=== PATIENT | female | born 1945 | race Caucasian/White ===

== ENCOUNTER → 2017-10-12 | Outpatient (REF) ==
[2017-10-12 10:29] LABS: MEAN CORPUSCULAR HEMOGLOBIN 28.3 pg (27.0-33.0); MEAN CORPUSCULAR HGB CONC 32.2 g/dl (32.0-36.5); MEAN CORPUSCULAR VOLUME 87.9 fl (80.0-96.0); PLATELET COUNT, AUTOMATED 285 10^3/uL (150-450); RED CELL DISTRIBUTION WIDTH 14.7 % (11.5-14.5)
[2017-10-12 10:43] LABS: CALCIUM LEVEL 8.7 MG/DL (8.8-10.2); CREATININE FOR GFR 1.02 MG/DL (0.55-1.02); GLOMERULAR FILTRATION RATE 56.4 (>39); POTASSIUM SERUM 4.8 MEQ/L (3.5-5.1)
== END ==
PROVIDERS: ATTEND Internal Medicine
DX: E11.9 Type 2 diabetes mellitus without complications (principal)

== ENCOUNTER → 2017-11-02 | Outpatient (REF) ==
[2017-11-02 11:11] LABS: HEMATOCRIT 39.4 % (36.0-47.0); HEMOGLOBIN 12.4 g/dl (12.0-16.0); MEAN CORPUSCULAR HEMOGLOBIN 27.7 pg (27.0-33.0); MEAN CORPUSCULAR HGB CONC 31.5 g/dl (32.0-36.5); MEAN CORPUSCULAR VOLUME 87.9 fl (80.0-96.0); PLATELET COUNT, AUTOMATED 230 10^3/uL (150-450); RED BLOOD COUNT 4.48 10^6/uL (4.00-5.40); RED CELL DISTRIBUTION WIDTH 14.5 % (11.5-14.5); WHITE BLOOD COUNT 6.3 10^3/uL (4.0-10.0)
[2017-11-02 11:45] LABS: ALBUMIN 3.2 GM/DL (3.2-5.2); ALKALINE PHOSPHATASE 62 U/L (45-117); ALT/SGPT 30 U/L (12-78); ANION GAP 9 MEQ/L (8-16); AST/SGOT 22 U/L (7-37); BILIRUBIN,DIRECT 0.1 MG/DL (0.0-0.2); BILIRUBIN,TOTAL 0.3 MG/DL (0.2-1.0); BLOOD UREA NITROGEN 32 MG/DL (7-18); CALCIUM LEVEL 8.8 MG/DL (8.8-10.2); CARBON DIOXIDE LEVEL 27 MEQ/L (21-32); CHLORIDE LEVEL 102 MEQ/L (98-107); CREATININE FOR GFR 0.87 MG/DL (0.55-1.02); GLOMERULAR FILTRATION RATE > 60.0 (>39); GLUCOSE, FASTING 187 MG/DL (83-110); POTASSIUM SERUM 4.4 MEQ/L (3.5-5.1); SODIUM LEVEL 138 MEQ/L (136-145); TOTAL PROTEIN 6.1 GM/DL (6.4-8.2)
[2017-11-02 13:37] LABS: ESTIMATED AVERAGE GLUCOSE 192 MG/DL (60-110); HEMOGLOBIN A1c 8.3 %
== END ==
DX: E11.9 Type 2 diabetes mellitus without complications (principal); E03.9 Hypothyroidism, unspecified

== ENCOUNTER 2017-11-15 09:43 | Outpatient (REF) ==
[2017-11-16 10:03] LABS: APPEARANCE, URINE CLOUDY (CLEAR); BACTERIA, URINE AUTO 1+ (NEGATIVE); BILIRUBIN, URINE AUTO NEGATIVE (NEGATIVE); BLOOD, URINE BLOOD NEGATIVE (NEGATIVE); COLOR, URINE YELLOW (YELLOW); GLUCOSE, URINE (UA) AUTO 1+ mg/dL (NEGATIVE); KETONE, URINE AUTO NEGATIVE (NEGATIVE); LEUKOCYTE ESTERASE, URINE AUTO 3+ (NEGATIVE); NITRITE, URINE AUTO POSITIVE (NEGATIVE); PROTEIN, URINE AUTO NEGATIVE (NEGATIVE); RBC, URINE AUTO 7 /HPF (0-3); SPECIFIC GRAVITY URINE AUTO 1.013 (1.002-1.035); SQUAMOUS EPITHELIAL CELL UR AU 2 /HPF (0-6); UROBILINOGEN, URINE AUTO 0.2 mg/dL (0.0-2.0); WBC, URINE AUTO TNTC /HPF (0-3)
== END 2017-11-16 ==
DX: R30.0 Dysuria (principal)

== ENCOUNTER → 2018-02-21 | Outpatient (REF) | DX: J84.9 Interstitial pulmonary disease, unspecified (principal); R05 Cough ==

== ENCOUNTER → 2018-02-24 | Outpatient (REF) ==
[2018-02-24 12:51] LABS: HEMATOCRIT 36.7 % (36.0-47.0); HEMOGLOBIN 11.9 g/dl (12.0-15.5); MEAN CORPUSCULAR HGB CONC 32.4 g/dl (32.0-36.5); MEAN CORPUSCULAR VOLUME 86.4 fl (80.0-96.0); PLATELET COUNT, AUTOMATED 227 10^3/uL (150-450); RED BLOOD COUNT 4.25 10^6/uL (4.00-5.40); RED CELL DISTRIBUTION WIDTH 14.6 % (11.5-14.5); WHITE BLOOD COUNT 7.8 10^3/uL (4.0-10.0)
[2018-02-24 14:15] LABS: ALBUMIN 3.1 GM/DL (3.2-5.2); ALBUMIN/GLOBULIN RATIO 0.94 (1.00-1.93); ALKALINE PHOSPHATASE 104 U/L (45-117); ALT/SGPT 46 U/L (12-78); ANION GAP 11 MEQ/L (8-16); AST/SGOT 28 U/L (7-37); BILIRUBIN,TOTAL 0.2 MG/DL (0.2-1.0); BLOOD UREA NITROGEN 30 MG/DL (7-18); CALCIUM LEVEL 8.8 MG/DL (8.8-10.2); CARBON DIOXIDE LEVEL 23 MEQ/L (21-32); CHLORIDE LEVEL 108 MEQ/L (98-107); CREATININE FOR GFR 0.89 MG/DL (0.55-1.30); GLOMERULAR FILTRATION RATE > 60.0 (>39); GLUCOSE, FASTING 183 MG/DL (70-100); POTASSIUM SERUM 4.4 MEQ/L (3.5-5.1); SODIUM LEVEL 142 MEQ/L (136-145); TOTAL PROTEIN 6.4 GM/DL (6.4-8.2)
== END ==
DX: R50.9 Fever, unspecified (principal); R11.0 Nausea

== ENCOUNTER → 2018-05-03 | Outpatient (REF) ==
[2018-05-03 10:11] LABS: HEMATOCRIT 39.3 % (36.0-47.0); HEMOGLOBIN 12.5 g/dl (12.0-15.5); MEAN CORPUSCULAR HEMOGLOBIN 27.4 pg (27.0-33.0); MEAN CORPUSCULAR HGB CONC 31.8 g/dl (32.0-36.5); MEAN CORPUSCULAR VOLUME 86.2 fl (80.0-96.0); PLATELET COUNT, AUTOMATED 225 10^3/uL (150-450); RED BLOOD COUNT 4.56 10^6/uL (4.00-5.40); RED CELL DISTRIBUTION WIDTH 14.7 % (11.5-14.5); WHITE BLOOD COUNT 6.8 10^3/uL (4.0-10.0)
[2018-05-03 10:42] LABS: ESTIMATED AVERAGE GLUCOSE 180 MG/DL (60-110); HEMOGLOBIN A1c 7.9 %
[2018-05-03 11:13] LABS: ALBUMIN 2.8 GM/DL (3.2-5.2); ALBUMIN/GLOBULIN RATIO 1.04 (1.00-1.93); ALKALINE PHOSPHATASE 100 U/L (45-117); ALT/SGPT 25 U/L (12-78); ANION GAP 7 MEQ/L (8-16); AST/SGOT 16 U/L (7-37); BILIRUBIN,DIRECT < 0.1 MG/DL (0.0-0.2); BILIRUBIN,TOTAL 0.2 MG/DL (0.2-1.0); BLOOD UREA NITROGEN 41 MG/DL (7-18); CALCIUM LEVEL 8.6 MG/DL (8.8-10.2); CARBON DIOXIDE LEVEL 30 MEQ/L (21-32); CHLORIDE LEVEL 104 MEQ/L (98-107); CREATININE FOR GFR 0.77 MG/DL (0.55-1.30); GLOMERULAR FILTRATION RATE > 60.0 (>39); GLUCOSE, FASTING 232 MG/DL (70-100); POTASSIUM SERUM 4.4 MEQ/L (3.5-5.1); SODIUM LEVEL 141 MEQ/L (136-145); TOTAL PROTEIN 5.5 GM/DL (6.4-8.2)
== END ==
DX: E78.5 Hyperlipidemia, unspecified (principal); E11.9 Type 2 diabetes mellitus without complications

== ENCOUNTER 2018-06-09 22:58 | Inpatient (IN) | payer MEDICARE, MEDICAID ==
[2018-06-09] MEDS: NS 1,000 ML IV (23:53)
[2018-06-09] MEDS: MORPHINE 4 MG/ML 1ML VIAL/SYRINGE (J2270) IV (23:54)
[2018-06-09 23:56] LABS: BASO # 0.1 10^3/uL (0.0-0.2); BASO % 0.5 % (0.0-1.0); EOS # 0.1 10^3/uL (0.0-0.50); EOS % 0.5 % (0.0-3.0); HEMATOCRIT 43.9 % (36.0-47.0); LYMPH % 5.8 % (24.0-44.0); MEAN CORPUSCULAR HEMOGLOBIN 27.7 pg (27.0-33.0); MEAN CORPUSCULAR HGB CONC 31.9 g/dl (32.0-36.5); MEAN CORPUSCULAR VOLUME 86.9 fl (80.0-96.0); MONO # 0.1 10^3/uL (0.0-0.8); MONO % 0.5 % (0.0-5.0); NEUTROPHILS # 15.1 10^3/uL (1.8-7.7); NEUTROPHILS % 91.7 % (36.0-66.0); PLATELET COUNT, AUTOMATED 281 10^3/uL (150-450); RED BLOOD COUNT 5.05 10^6/uL (4.00-5.40); RED CELL DISTRIBUTION WIDTH 14.9 % (11.5-14.5); WHITE BLOOD COUNT 16.4 10^3/uL (4.0-10.0)
[2018-06-10] MEDS: ONDANSETRON 4MG/2ML VIAL (J2405) IV
[2018-06-10 00:08] LABS: ALBUMIN/GLOBULIN RATIO 0.75 (1.00-1.93); ALKALINE PHOSPHATASE 118 U/L (45-117); ALT/SGPT 32 U/L (12-78); ANION GAP 8 MEQ/L (8-16); AST/SGOT 20 U/L (7-37); BILIRUBIN,DIRECT < 0.1 MG/DL (0.0-0.2); BILIRUBIN,TOTAL 0.3 MG/DL (0.2-1.0); BLOOD UREA NITROGEN 41 MG/DL (7-18); CALCIUM LEVEL 9.1 MG/DL (8.8-10.2); CARBON DIOXIDE LEVEL 29 MEQ/L (21-32); CHLORIDE LEVEL 103 MEQ/L (98-107); CK-MB VALUE MASS 4.1 NG/ML (<3.6); CPK CREATINE PHOSPHOKINASE 123 U/L (26-192); CREATININE FOR GFR 1.23 MG/DL (0.55-1.30); GLOMERULAR FILTRATION RATE 45.3 (>39); GLUCOSE, FASTING 269 MG/DL (70-100); LIPASE 251 U/L (73-393); MB/CK RELATIVE INDEX 3.33 (< OR =4); POTASSIUM SERUM 4.8 MEQ/L (3.5-5.1); SODIUM LEVEL 140 MEQ/L (136-145); TROPONIN I < 0.02 NG/ML (< 0.10)
[2018-06-10] MEDS: PIPERACILLIN/TAZOBACTAM SOD 3.375 GM in D5W MINI-BAG PLUS 50 ML IV ×4 (01:59→20:47)
[2018-06-10] MEDS: ACETAMINOPHEN TAB 650MG DOSE (2X325MG) PO (02:00)
[2018-06-10 02:10] LABS: KETONE, URINE AUTO RFX NEGATIVE (NEGATIVE); MUCUS, URINE RFX SMALL (NEGATIVE); NITRITE, URINE AUTO RFX NEGATIVE (NEGATIVE); RBC, URINE AUTO RFX 84 /HPF (0-3); SPECIFIC GRAVITY UR AUTO RFX 1.012 (1.002-1.035); SQUAM EPITHELIAL CELL UR AURFX 2 /HPF (0-6)
[2018-06-10 02:22] LABS: LEUKOCYTE ESTERASE UR AUTO RFX 3+ (NEGATIVE); WBC, URINE AUTO RFX TNTC /HPF (0-3)
[2018-06-10 02:26] LABS: LACTIC ACID SEPSIS PROTOCOL 2.3 MMOL/L (0.4-2.0)
[2018-06-10] MEDS ORDERED: DEXTROSE 50% 50 ML SYRINGE IV (03:45)
[2018-06-10] MEDS ORDERED: GLUCAGON FOR INJ 1 MG VIAL (J1610) SC (03:45)
[2018-06-10] MEDS ORDERED: SODIUM CHLORIDE NASAL 0.65% SPRAY BTL (OCEAN) (03:45)
[2018-06-10] MEDS ORDERED: GLUCOSE 4 GM CHEW TABLET PO (03:45)
[2018-06-10] MEDS ORDERED: BISACODYL 10 MG SUPP PR (03:45)
[2018-06-10] MEDS: NS 1,000 ML IV ×2 (04:34→14:35)
[2018-06-10] MEDS: TAMSULOSIN 0.4 MG CAP PO (04:35)
[2018-06-10] MEDS: LEVOTHYROXINE 50MCG TABLET (0.05MG) PO (05:33)
[2018-06-10] MEDS: HEPARIN SOD (PORCINE) 5000 UNITS/ML VIAL SC ×3 (05:33→22:00)
[2018-06-10 06:07] LABS: HEMATOCRIT 37.2 % (36.0-47.0); HEMOGLOBIN 12.1 g/dl (12.0-15.5); MEAN CORPUSCULAR HEMOGLOBIN 27.8 pg (27.0-33.0); MEAN CORPUSCULAR HGB CONC 32.5 g/dl (32.0-36.5); MEAN CORPUSCULAR VOLUME 85.5 fl (80.0-96.0); PLATELET COUNT, AUTOMATED 229 10^3/uL (150-450); RED BLOOD COUNT 4.35 10^6/uL (4.00-5.40); RED CELL DISTRIBUTION WIDTH 15.2 % (11.5-14.5); WHITE BLOOD COUNT 23.5 10^3/uL (4.0-10.0)
[2018-06-10 06:20] LABS: ANION GAP 12 MEQ/L (8-16); BLOOD UREA NITROGEN 48 MG/DL (7-18); CALCIUM LEVEL 7.9 MG/DL (8.8-10.2); CARBON DIOXIDE LEVEL 22 MEQ/L (21-32); CHLORIDE LEVEL 110 MEQ/L (98-107); CREATININE FOR GFR 1.73 MG/DL (0.55-1.30); GLOMERULAR FILTRATION RATE 30.6 (>39); GLUCOSE, FASTING 301 MG/DL (70-100); POTASSIUM SERUM 4.2 MEQ/L (3.5-5.1); SODIUM LEVEL 144 MEQ/L (136-145)
[2018-06-10] MEDS: SODIUM CHLORIDE 0.9% 1000 ML IV (08:15)
[2018-06-10] MEDS: CHLORHEXIDINE ORAL RINSE 0.12%/15ML 120ML BOTTLE SSP ×2 (08:32→20:48)
[2018-06-10] MEDS: DOCUSATE SODIUM 100 MG CAP PO ×2 (08:33→20:37)
[2018-06-10] MEDS: DULoxetine 30 MG CAP (CYMBALTA) PO (08:33)
[2018-06-10] MEDS: LISINOPRIL *2.5 MG* TAB PO (08:33)
[2018-06-10] MEDS: OMEPRAZOLE 20 MG CAP PO (08:33)
[2018-06-10] MEDS: GABAPENTIN 300 MG CAP PO ×2 (08:33→20:38)
[2018-06-10] MEDS: FERROUS SULFATE 325MG TAB PO (08:33)
[2018-06-10] MEDS: MULTIVITAMINS/MINERALS THERAP 1 TAB PO (08:34)
[2018-06-10] MEDS: VITAMIN D 1,000 INTERNATIONAL UNITS TABLET PO (08:34)
[2018-06-10] MEDS: HumaLOG INSULIN (NovoLOG) PER UNIT SC ×4 (08:42→23:49)
[2018-06-10] MEDS ORDERED: KETAMINE HCL 200 MG/20 ML VIAL As Ordered (10:53)
[2018-06-10] MEDS ORDERED: MIDAZOLAM INJ 2 MG/2 ML VIAL (J2250) As Ordered (10:53)
[2018-06-10] MEDS ORDERED: PHENYLephrine HCL 500 MCG/5 ML (100MCG/ML) SYRINGE (J2370) As Ordered (11:01)
[2018-06-10] MEDS ORDERED: ONDANSETRON 4MG/2ML VIAL (J2405) IV (11:30)
[2018-06-10 11:45] LABS: BEDSIDE GLUCOSE 194 MG/DL (83-110)
[2018-06-10] MEDS: GABAPENTIN 100 MG CAP PO (12:44)
[2018-06-10 13:06] LABS: LACTIC ACID SEPSIS PROTOCOL 5.7 MMOL/L (0.4-2.0)
[2018-06-10 14:33] LABS: BEDSIDE GLUCOSE 195 MG/DL (83-110)
[2018-06-10 15:59] LABS: HEMATOCRIT 33.7 % (36.0-47.0); HEMOGLOBIN 10.9 g/dl (12.0-15.5); MEAN CORPUSCULAR HEMOGLOBIN 28.4 pg (27.0-33.0); MEAN CORPUSCULAR HGB CONC 32.3 g/dl (32.0-36.5); MEAN CORPUSCULAR VOLUME 87.8 fl (80.0-96.0); PLATELET COUNT, AUTOMATED 169 10^3/uL (150-450); RED BLOOD COUNT 3.84 10^6/uL (4.00-5.40); RED CELL DISTRIBUTION WIDTH 15.8 % (11.5-14.5)
[2018-06-10 16:07] LABS: ADD MANUAL DIFFER YES; DIFF SLIDE NUMBER 295; POS COUNT POS FLAG; POSITIVE DIFF POS FLAG; POSITIVE MORPH POS FLAG; WHITE BLOOD COUNT 31.2 10^3/uL (4.0-10.0)
[2018-06-10 16:26] LABS: ALBUMIN 1.9 GM/DL (3.2-5.2); ALBUMIN/GLOBULIN RATIO 0.73 (1.00-1.93); ALKALINE PHOSPHATASE 76 U/L (45-117); ALT/SGPT 42 U/L (12-78); ANION GAP 13 MEQ/L (8-16); AST/SGOT 42 U/L (7-37); BILIRUBIN,TOTAL 0.5 MG/DL (0.2-1.0); BLOOD UREA NITROGEN 53 MG/DL (7-18); CALCIUM LEVEL 7.1 MG/DL (8.8-10.2); CARBON DIOXIDE LEVEL 20 MEQ/L (21-32); CHLORIDE LEVEL 112 MEQ/L (98-107); CREATININE FOR GFR 2.19 MG/DL (0.55-1.30); GLOMERULAR FILTRATION RATE 23.3 (>39); GLUCOSE, FASTING 247 MG/DL (70-100); MAGNESIUM LEVEL 1.2 MG/DL (1.8-2.4); POTASSIUM SERUM 4.9 MEQ/L (3.5-5.1); SODIUM LEVEL 145 MEQ/L (136-145); TOTAL PROTEIN 4.5 GM/DL (6.4-8.2)
[2018-06-10 16:29] LABS: LACTIC ACID SEPSIS PROTOCOL 4.3 MMOL/L (0.4-2.0)
[2018-06-10 16:30] LABS: ATYPICAL LYMPH 3 % (0-5); BANDS 11 % (< 11); LYMPHOCYTES 6 % (16-52); METAMYELOCYTES 3 % (0-0); MYELOCYTES 3 % (0-0); NEUTROPHILS 74 % (35-75)
[2018-06-10 16:31] LABS: PLATELET ESTIMATE NORMAL (NORMAL); TOXIC VACUOLATION 1+
[2018-06-10 18:14] LABS: BEDSIDE GLUCOSE 251 MG/DL (83-110)
[2018-06-10] MEDS: ATORVASTATIN 20 MG TAB PO (20:37)
[2018-06-10] MEDS: PRAMIPEXOLE 0.25 MG TAB PO (20:38)
[2018-06-10] MEDS: LEVEMIR (INSULIN DETEMIR) 1 UNITS/0.01ML SC (23:01)
[2018-06-10 23:45] LABS: BEDSIDE GLUCOSE 206 MG/DL (83-110)
[2018-06-11] MEDS: NS 1,000 ML IV (01:34)
[2018-06-11] MEDS: PIPERACILLIN/TAZOBACTAM SOD 3.375 GM in D5W MINI-BAG PLUS 50 ML IV ×4 (02:11→19:32)
[2018-06-11] MEDS: LEVOTHYROXINE 50MCG TABLET (0.05MG) PO (05:02)
[2018-06-11 05:36] LABS: HEMATOCRIT 32.8 % (36.0-47.0); HEMOGLOBIN 10.4 g/dl (12.0-15.5); MEAN CORPUSCULAR HEMOGLOBIN 27.7 pg (27.0-33.0); MEAN CORPUSCULAR HGB CONC 31.7 g/dl (32.0-36.5); MEAN CORPUSCULAR VOLUME 87.5 fl (80.0-96.0); PLATELET COUNT, AUTOMATED 132 10^3/uL (150-450); RED BLOOD COUNT 3.75 10^6/uL (4.00-5.40); RED CELL DISTRIBUTION WIDTH 15.9 % (11.5-14.5); WHITE BLOOD COUNT 24.6 10^3/uL (4.0-10.0)
[2018-06-11] MEDS: HEPARIN SOD (PORCINE) 5000 UNITS/ML VIAL SC ×3 (05:39→20:42)
[2018-06-11 06:08] LABS: ANION GAP 9 MEQ/L (8-16); BLOOD UREA NITROGEN 58 MG/DL (7-18); CALCIUM LEVEL 6.7 MG/DL (8.8-10.2); CARBON DIOXIDE LEVEL 25 MEQ/L (21-32); CHLORIDE LEVEL 114 MEQ/L (98-107); CREATININE FOR GFR 2.34 MG/DL (0.55-1.30); GLOMERULAR FILTRATION RATE 21.6 (>39); GLUCOSE, FASTING 151 MG/DL (70-100); POTASSIUM SERUM 4.6 MEQ/L (3.5-5.1); SODIUM LEVEL 148 MEQ/L (136-145)
[2018-06-11] MEDS: HumaLOG INSULIN (NovoLOG) PER UNIT SC ×4 (07:30→21:00)
[2018-06-11 08:07] LABS: MAGNESIUM LEVEL 1.5 MG/DL (1.8-2.4)
[2018-06-11] MEDS: MULTIVITAMINS/MINERALS THERAP 1 TAB PO (08:09)
[2018-06-11] MEDS: OMEPRAZOLE 20 MG CAP PO (08:09)
[2018-06-11] MEDS: VITAMIN D 1,000 INTERNATIONAL UNITS TABLET PO (08:09)
[2018-06-11] MEDS: DOCUSATE SODIUM 100 MG CAP PO ×2 (08:09→20:41)
[2018-06-11] MEDS: FERROUS SULFATE 325MG TAB PO (08:09)
[2018-06-11] MEDS: TAMSULOSIN 0.4 MG CAP PO (08:09)
[2018-06-11] MEDS: GABAPENTIN 300 MG CAP PO ×2 (08:09→20:42)
[2018-06-11] MEDS: NS 0.45% 1,000 ML IV ×3 (08:14→22:30)
[2018-06-11 08:47] LABS: LACTIC ACID SEPSIS PROTOCOL 1.2 MMOL/L (0.4-2.0)
[2018-06-11] MEDS: CHLORHEXIDINE ORAL RINSE 0.12%/15ML 120ML BOTTLE SSP ×2 (08:53→20:42)
[2018-06-11] MEDS: LISINOPRIL *2.5 MG* TAB PO (09:43)
[2018-06-11 11:25] LABS: BEDSIDE GLUCOSE 149 MG/DL (83-110)
[2018-06-11] MEDS: GABAPENTIN 100 MG CAP PO (13:17)
[2018-06-11 13:33] LABS: ANION GAP 11 MEQ/L (8-16); BLOOD UREA NITROGEN 57 MG/DL (7-18); CALCIUM LEVEL 6.7 MG/DL (8.8-10.2); CARBON DIOXIDE LEVEL 23 MEQ/L (21-32); CHLORIDE LEVEL 112 MEQ/L (98-107); CREATININE FOR GFR 2.32 MG/DL (0.55-1.30); GLOMERULAR FILTRATION RATE 21.8 (>39); GLUCOSE, FASTING 188 MG/DL (70-100); POTASSIUM SERUM 4.6 MEQ/L (3.5-5.1); SODIUM LEVEL 146 MEQ/L (136-145)
[2018-06-11] MEDS: MAG SULF 1GM/100ML (MAG RUN) 1 GM in APPROPRIATE DILUENT 1 EA IV (14:51)
[2018-06-11 16:50] LABS: BEDSIDE GLUCOSE 214 MG/DL (83-110)
[2018-06-11] MEDS: PERCOCET 5MG/325MG TAB PO (17:53)
[2018-06-11 20:23] LABS: BEDSIDE GLUCOSE 198 MG/DL (83-110)
[2018-06-11] MEDS: LEVEMIR (INSULIN DETEMIR) 1 UNITS/0.01ML SC (20:41)
[2018-06-11] MEDS: PRAMIPEXOLE 0.25 MG TAB PO (20:41)
[2018-06-11] MEDS: ATORVASTATIN 20 MG TAB PO (20:42)
[2018-06-12] MEDS: PIPERACILLIN/TAZOBACTAM SOD 3.375 GM in D5W MINI-BAG PLUS 50 ML IV ×4 (02:26→20:18)
[2018-06-12 05:03] LABS: HEMATOCRIT 30.2 % (36.0-47.0); HEMOGLOBIN 9.6 g/dl (12.0-15.5); MEAN CORPUSCULAR HEMOGLOBIN 27.9 pg (27.0-33.0); MEAN CORPUSCULAR HGB CONC 31.8 g/dl (32.0-36.5); MEAN CORPUSCULAR VOLUME 87.8 fl (80.0-96.0); PLATELET COUNT, AUTOMATED 112 10^3/uL (150-450); RED BLOOD COUNT 3.44 10^6/uL (4.00-5.40); RED CELL DISTRIBUTION WIDTH 15.9 % (11.5-14.5); WHITE BLOOD COUNT 17.4 10^3/uL (4.0-10.0)
[2018-06-12] MEDS: LEVOTHYROXINE 50MCG TABLET (0.05MG) PO (05:24)
[2018-06-12] MEDS: HEPARIN SOD (PORCINE) 5000 UNITS/ML VIAL SC ×3 (05:25→21:20)
[2018-06-12] MEDS: PERCOCET 5MG/325MG TAB PO (05:25)
[2018-06-12 05:26] LABS: ANION GAP 9 MEQ/L (8-16); BLOOD UREA NITROGEN 61 MG/DL (7-18); CALCIUM LEVEL 6.5 MG/DL (8.8-10.2); CARBON DIOXIDE LEVEL 25 MEQ/L (21-32); CHLORIDE LEVEL 109 MEQ/L (98-107); CREATININE FOR GFR 2.27 MG/DL (0.55-1.30); GLOMERULAR FILTRATION RATE 22.3 (>39); GLUCOSE, FASTING 120 MG/DL (70-100); POTASSIUM SERUM 4.3 MEQ/L (3.5-5.1); SODIUM LEVEL 143 MEQ/L (136-145)
[2018-06-12 05:58] LABS: MAGNESIUM LEVEL 1.9 MG/DL (1.8-2.4)
[2018-06-12] MEDS: CHLORHEXIDINE ORAL RINSE 0.12%/15ML 120ML BOTTLE SSP ×2 (09:00→21:00)
[2018-06-12] MEDS: NS 0.45% 1,000 ML IV (09:10)
[2018-06-12] MEDS: TAMSULOSIN 0.4 MG CAP PO (09:11)
[2018-06-12] MEDS: HumaLOG INSULIN (NovoLOG) PER UNIT SC ×4 (09:11→21:00)
[2018-06-12] MEDS: VITAMIN D 1,000 INTERNATIONAL UNITS TABLET PO (09:11)
[2018-06-12] MEDS: GABAPENTIN 300 MG CAP PO ×2 (09:11→21:19)
[2018-06-12] MEDS: DOCUSATE SODIUM 100 MG CAP PO ×2 (09:11→21:19)
[2018-06-12] MEDS: OMEPRAZOLE 20 MG CAP PO (09:12)
[2018-06-12] MEDS: DULoxetine 30 MG CAP (CYMBALTA) PO (09:12)
[2018-06-12] MEDS: MULTIVITAMINS/MINERALS THERAP 1 TAB PO (09:12)
[2018-06-12] MEDS: FERROUS SULFATE 325MG TAB PO (09:12)
[2018-06-12 12:08] LABS: BEDSIDE GLUCOSE 93 MG/DL (83-110)
[2018-06-12] MEDS: GABAPENTIN 100 MG CAP PO (13:17)
[2018-06-12 15:19] LABS: ANION GAP 10 MEQ/L (8-16); BLOOD UREA NITROGEN 59 MG/DL (7-18); CALCIUM LEVEL 6.4 MG/DL (8.8-10.2); CARBON DIOXIDE LEVEL 22 MEQ/L (21-32); CHLORIDE LEVEL 107 MEQ/L (98-107); CREATININE FOR GFR 2.21 MG/DL (0.55-1.30); GLUCOSE, FASTING 157 MG/DL (70-100); POTASSIUM SERUM 4.3 MEQ/L (3.5-5.1); SODIUM LEVEL 139 MEQ/L (136-145)
[2018-06-12] MEDS: NS 1,000 ML IV (15:45)
[2018-06-12 16:58] LABS: BEDSIDE GLUCOSE 208 MG/DL (83-110)
[2018-06-12 21:11] LABS: BEDSIDE GLUCOSE 210 MG/DL (83-110)
[2018-06-12] MEDS: ATORVASTATIN 20 MG TAB PO (21:20)
[2018-06-12] MEDS: LEVEMIR (INSULIN DETEMIR) 1 UNITS/0.01ML SC (21:20)
[2018-06-12] MEDS: PRAMIPEXOLE 0.25 MG TAB PO (21:20)
[2018-06-12] MEDS: MAALOX 30 ML SUSP *UDC PO (21:58)
[2018-06-12] MEDS: ACETAMINOPHEN TAB 650MG DOSE (2X325MG) PO (23:42)
[2018-06-13] MEDS: PIPERACILLIN/TAZOBACTAM SOD 3.375 GM in D5W MINI-BAG PLUS 50 ML IV ×4 (02:36→19:49)
[2018-06-13] MEDS: NS 1,000 ML IV (02:36)
[2018-06-13] MEDS: LEVOTHYROXINE 50MCG TABLET (0.05MG) PO (05:27)
[2018-06-13] MEDS: HEPARIN SOD (PORCINE) 5000 UNITS/ML VIAL SC ×3 (05:27→21:19)
[2018-06-13 05:28] LABS: HEMATOCRIT 28.4 % (36.0-47.0); HEMOGLOBIN 9.2 g/dl (12.0-15.5); MEAN CORPUSCULAR HGB CONC 32.4 g/dl (32.0-36.5); MEAN CORPUSCULAR VOLUME 86.3 fl (80.0-96.0); PLATELET COUNT, AUTOMATED 128 10^3/uL (150-450); RED BLOOD COUNT 3.29 10^6/uL (4.00-5.40); RED CELL DISTRIBUTION WIDTH 15.5 % (11.5-14.5); WHITE BLOOD COUNT 10.9 10^3/uL (4.0-10.0)
[2018-06-13 05:56] LABS: ANION GAP 10 MEQ/L (8-16); BLOOD UREA NITROGEN 61 MG/DL (7-18); CALCIUM LEVEL 6.4 MG/DL (8.8-10.2); CARBON DIOXIDE LEVEL 22 MEQ/L (21-32); CHLORIDE LEVEL 110 MEQ/L (98-107); CREATININE FOR GFR 2.21 MG/DL (0.55-1.30); GLUCOSE, FASTING 103 MG/DL (70-100); POTASSIUM SERUM 4.2 MEQ/L (3.5-5.1); SODIUM LEVEL 142 MEQ/L (136-145)
[2018-06-13] MEDS: DOCUSATE SODIUM 100 MG CAP PO ×2 (08:17→21:18)
[2018-06-13] MEDS: GABAPENTIN 300 MG CAP PO ×2 (08:17→21:18)
[2018-06-13] MEDS: VITAMIN D 1,000 INTERNATIONAL UNITS TABLET PO (08:17)
[2018-06-13] MEDS: HumaLOG INSULIN (NovoLOG) PER UNIT SC ×4 (08:17→21:00)
[2018-06-13] MEDS: FERROUS SULFATE 325MG TAB PO (08:17)
[2018-06-13] MEDS: OMEPRAZOLE 20 MG CAP PO (08:17)
[2018-06-13] MEDS: MULTIVITAMINS/MINERALS THERAP 1 TAB PO (08:17)
[2018-06-13] MEDS: TAMSULOSIN 0.4 MG CAP PO (08:17)
[2018-06-13] MEDS: CHLORHEXIDINE ORAL RINSE 0.12%/15ML 120ML BOTTLE SSP ×2 (08:18→21:19)
[2018-06-13] MEDS ORDERED: SLF 3 ML SYR IV (10:45)
[2018-06-13 11:42] LABS: BEDSIDE GLUCOSE 73 MG/DL (83-110)
[2018-06-13] MEDS: GABAPENTIN 100 MG CAP PO (12:19)
[2018-06-13] MEDS: SLF 3 ML SYR IV ×2 (13:42→21:19)
[2018-06-13 15:32] LABS: CREATININE,RANDOM URINE 18.9 MG/DL; SODIUM,RANDOM URINE 40 MEQ/L
[2018-06-13 15:40] LABS: OSMOLALITY URINE 205 MOSM/KG (500-800)
[2018-06-13 16:51] LABS: BEDSIDE GLUCOSE 208 MG/DL (83-110)
[2018-06-13 18:03] LABS: ANION GAP 11 MEQ/L (8-16); BLOOD UREA NITROGEN 55 MG/DL (7-18); CALCIUM LEVEL 7.1 MG/DL (8.8-10.2); CARBON DIOXIDE LEVEL 22 MEQ/L (21-32); CHLORIDE LEVEL 110 MEQ/L (98-107); CREATININE FOR GFR 2.11 MG/DL (0.55-1.30); GLOMERULAR FILTRATION RATE 24.3 (>39); GLUCOSE, FASTING 198 MG/DL (70-100); POTASSIUM SERUM 4.6 MEQ/L (3.5-5.1); SODIUM LEVEL 143 MEQ/L (136-145)
[2018-06-13 20:58] LABS: BEDSIDE GLUCOSE 245 MG/DL (83-110)
[2018-06-13] MEDS: ATORVASTATIN 20 MG TAB PO (21:18)
[2018-06-13] MEDS: LEVEMIR (INSULIN DETEMIR) 1 UNITS/0.01ML SC (21:19)
[2018-06-13] MEDS: PRAMIPEXOLE 0.25 MG TAB PO (21:19)
[2018-06-13] MEDS: ACETAMINOPHEN TAB 650MG DOSE (2X325MG) PO (21:37)
[2018-06-13] MEDS: MOM 30ML SUSPENSION UDC PO (21:37)
[2018-06-13 21:58] LABS: ANION GAP 10 MEQ/L (8-16); BLOOD UREA NITROGEN 55 MG/DL (7-18); CALCIUM LEVEL 6.8 MG/DL (8.8-10.2); CARBON DIOXIDE LEVEL 22 MEQ/L (21-32); CHLORIDE LEVEL 110 MEQ/L (98-107); CREATININE FOR GFR 2.08 MG/DL (0.55-1.30); GLOMERULAR FILTRATION RATE 24.7 (>39); GLUCOSE, FASTING 231 MG/DL (70-100); MAGNESIUM LEVEL 1.8 MG/DL (1.8-2.4); PHOSPHORUS LEVEL 2.8 MG/DL (2.5-4.9); POTASSIUM SERUM 4.5 MEQ/L (3.5-5.1); SODIUM LEVEL 142 MEQ/L (136-145)
[2018-06-14 01:33] LABS: BEDSIDE GLUCOSE 174 MG/DL (83-110)
[2018-06-14] MEDS: PIPERACILLIN/TAZOBACTAM SOD 3.375 GM in D5W MINI-BAG PLUS 50 ML IV ×2 (02:34→08:26)
[2018-06-14] MEDS: ACETAMINOPHEN TAB 650MG DOSE (2X325MG) PO ×2 (03:55→21:36)
[2018-06-14] MEDS: LEVOTHYROXINE 50MCG TABLET (0.05MG) PO (06:02)
[2018-06-14] MEDS: SLF 3 ML SYR IV ×4 (06:02→22:00)
[2018-06-14] MEDS: HEPARIN SOD (PORCINE) 5000 UNITS/ML VIAL SC ×3 (06:02→21:35)
[2018-06-14 06:19] LABS: HEMATOCRIT 30.2 % (36.0-47.0); HEMOGLOBIN 9.9 g/dl (12.0-15.5); MEAN CORPUSCULAR HGB CONC 32.8 g/dl (32.0-36.5); MEAN CORPUSCULAR VOLUME 85.6 fl (80.0-96.0); PLATELET COUNT, AUTOMATED 146 10^3/uL (150-450); RED BLOOD COUNT 3.53 10^6/uL (4.00-5.40); RED CELL DISTRIBUTION WIDTH 15.5 % (11.5-14.5); WHITE BLOOD COUNT 11.1 10^3/uL (4.0-10.0)
[2018-06-14 06:36] LABS: ANION GAP 7 MEQ/L (8-16); BLOOD UREA NITROGEN 51 MG/DL (7-18); CALCIUM LEVEL 7.3 MG/DL (8.8-10.2); CARBON DIOXIDE LEVEL 25 MEQ/L (21-32); CHLORIDE LEVEL 113 MEQ/L (98-107); CREATININE FOR GFR 1.98 MG/DL (0.55-1.30); GLOMERULAR FILTRATION RATE 26.2 (>39); GLUCOSE, FASTING 113 MG/DL (70-100); POTASSIUM SERUM 4.4 MEQ/L (3.5-5.1); SODIUM LEVEL 145 MEQ/L (136-145)
[2018-06-14 06:36] LABS: C REACTIVE PROTEIN QUANTITATIV 8.13 MG/DL (0.00-0.30)
[2018-06-14] MEDS: HumaLOG INSULIN (NovoLOG) PER UNIT SC ×4 (08:27→21:00)
[2018-06-14] MEDS: DOCUSATE SODIUM 100 MG CAP PO ×3 (08:27→21:36)
[2018-06-14] MEDS: OMEPRAZOLE 20 MG CAP PO (08:27)
[2018-06-14] MEDS: MULTIVITAMINS/MINERALS THERAP 1 TAB PO (08:28)
[2018-06-14] MEDS: FERROUS SULFATE 325MG TAB PO (08:28)
[2018-06-14] MEDS: GABAPENTIN 300 MG CAP PO ×2 (08:28→21:35)
[2018-06-14] MEDS: DULoxetine 30 MG CAP (CYMBALTA) PO (08:28)
[2018-06-14] MEDS: VITAMIN D 1,000 INTERNATIONAL UNITS TABLET PO (08:28)
[2018-06-14] MEDS: CHLORHEXIDINE ORAL RINSE 0.12%/15ML 120ML BOTTLE SSP ×2 (08:28→21:36)
[2018-06-14] MEDS: TAMSULOSIN 0.4 MG CAP PO (08:28)
[2018-06-14 11:36] LABS: BEDSIDE GLUCOSE 129 MG/DL (83-110)
[2018-06-14] MEDS: GABAPENTIN 100 MG CAP PO (12:32)
[2018-06-14] MEDS: CEFDINIR 300 MG CAP (OMNICEF) PO ×2 (12:33→21:36)
[2018-06-14 14:53] LABS: ANION GAP 7 MEQ/L (8-16); BLOOD UREA NITROGEN 52 MG/DL (7-18); CALCIUM LEVEL 7.9 MG/DL (8.8-10.2); CARBON DIOXIDE LEVEL 25 MEQ/L (21-32); CHLORIDE LEVEL 113 MEQ/L (98-107); CREATININE FOR GFR 1.98 MG/DL (0.55-1.30); GLOMERULAR FILTRATION RATE 26.2 (>39); GLUCOSE, FASTING 169 MG/DL (70-100); MAGNESIUM LEVEL 2.2 MG/DL (1.8-2.4); POTASSIUM SERUM 4.4 MEQ/L (3.5-5.1); SODIUM LEVEL 145 MEQ/L (136-145)
[2018-06-14 17:00] LABS: BEDSIDE GLUCOSE 180 MG/DL (83-110)
[2018-06-14 19:12] LABS: ANION GAP 6 MEQ/L (8-16); BLOOD UREA NITROGEN 49 MG/DL (7-18); CALCIUM LEVEL 7.9 MG/DL (8.8-10.2); CARBON DIOXIDE LEVEL 24 MEQ/L (21-32); CHLORIDE LEVEL 110 MEQ/L (98-107); CREATININE FOR GFR 1.89 MG/DL (0.55-1.30); GLOMERULAR FILTRATION RATE 27.6 (>39); GLUCOSE, FASTING 232 MG/DL (70-100); POTASSIUM SERUM 4.3 MEQ/L (3.5-5.1); SODIUM LEVEL 140 MEQ/L (136-145)
[2018-06-14 21:29] LABS: BEDSIDE GLUCOSE 223 MG/DL (83-110)
[2018-06-14] MEDS: ATORVASTATIN 20 MG TAB PO (21:35)
[2018-06-14] MEDS: LEVEMIR (INSULIN DETEMIR) 1 UNITS/0.01ML SC (21:35)
[2018-06-14] MEDS: PRAMIPEXOLE 0.25 MG TAB PO (21:36)
[2018-06-15] MEDS: ONDANSETRON 4MG/2ML VIAL (J2405) IV (02:29)
[2018-06-15] MEDS: SLF 3 ML SYR IV ×3 (05:52→20:40)
[2018-06-15] MEDS: LEVOTHYROXINE 50MCG TABLET (0.05MG) PO (05:56)
[2018-06-15] MEDS: HEPARIN SOD (PORCINE) 5000 UNITS/ML VIAL SC ×3 (05:57→20:38)
[2018-06-15 06:27] LABS: HEMATOCRIT 32.2 % (36.0-47.0); HEMOGLOBIN 10.4 g/dl (12.0-15.5); MEAN CORPUSCULAR HEMOGLOBIN 27.4 pg (27.0-33.0); MEAN CORPUSCULAR HGB CONC 32.3 g/dl (32.0-36.5); PLATELET COUNT, AUTOMATED 187 10^3/uL (150-450); RED BLOOD COUNT 3.79 10^6/uL (4.00-5.40); RED CELL DISTRIBUTION WIDTH 15.4 % (11.5-14.5); WHITE BLOOD COUNT 11.1 10^3/uL (4.0-10.0)
[2018-06-15 06:39] LABS: C REACTIVE PROTEIN QUANTITATIV 6.61 MG/DL (0.00-0.30)
[2018-06-15 06:40] LABS: ANION GAP 8 MEQ/L (8-16); BLOOD UREA NITROGEN 45 MG/DL (7-18); CALCIUM LEVEL 7.7 MG/DL (8.8-10.2); CARBON DIOXIDE LEVEL 25 MEQ/L (21-32); CHLORIDE LEVEL 112 MEQ/L (98-107); CREATININE FOR GFR 1.81 MG/DL (0.55-1.30); GLUCOSE, FASTING 199 MG/DL (70-100); POTASSIUM SERUM 4.4 MEQ/L (3.5-5.1); SODIUM LEVEL 145 MEQ/L (136-145)
[2018-06-15] MEDS: HumaLOG INSULIN (NovoLOG) PER UNIT SC ×4 (07:41→20:21)
[2018-06-15] MEDS: TAMSULOSIN 0.4 MG CAP PO (09:06)
[2018-06-15] MEDS: CEFDINIR 300 MG CAP (OMNICEF) PO ×2 (09:06→20:39)
[2018-06-15] MEDS: OMEPRAZOLE 20 MG CAP PO (09:06)
[2018-06-15] MEDS: VITAMIN D 1,000 INTERNATIONAL UNITS TABLET PO (09:06)
[2018-06-15] MEDS: DOCUSATE SODIUM 100 MG CAP PO ×2 (09:06→20:41)
[2018-06-15] MEDS: GABAPENTIN 300 MG CAP PO ×2 (09:06→20:39)
[2018-06-15] MEDS: FERROUS SULFATE 325MG TAB PO (09:06)
[2018-06-15] MEDS: MULTIVITAMINS/MINERALS THERAP 1 TAB PO (09:06)
[2018-06-15] MEDS: CHLORHEXIDINE ORAL RINSE 0.12%/15ML 120ML BOTTLE SSP ×2 (09:07→20:41)
[2018-06-15 12:02] LABS: BEDSIDE GLUCOSE 204 MG/DL (83-110)
[2018-06-15] MEDS: GABAPENTIN 100 MG CAP PO (12:23)
[2018-06-15 16:43] LABS: BEDSIDE GLUCOSE 171 MG/DL (83-110)
[2018-06-15 19:48] LABS: BEDSIDE GLUCOSE 207 MG/DL (83-110)
[2018-06-15] MEDS: LEVEMIR (INSULIN DETEMIR) 1 UNITS/0.01ML SC (20:39)
[2018-06-15] MEDS: ATORVASTATIN 20 MG TAB PO (20:39)
[2018-06-15] MEDS: PRAMIPEXOLE 0.25 MG TAB PO (20:40)
[2018-06-15] MEDS: PERCOCET 5MG/325MG TAB PO (21:16)
[2018-06-16] MEDS: SLF 3 ML SYR IV (05:44)
[2018-06-16] MEDS: HEPARIN SOD (PORCINE) 5000 UNITS/ML VIAL SC (05:44)
[2018-06-16] MEDS: LEVOTHYROXINE 50MCG TABLET (0.05MG) PO (05:44)
[2018-06-16 06:09] LABS: HEMATOCRIT 30.1 % (36.0-47.0); HEMOGLOBIN 9.7 g/dl (12.0-15.5); MEAN CORPUSCULAR HGB CONC 32.2 g/dl (32.0-36.5); PLATELET COUNT, AUTOMATED 202 10^3/uL (150-450); RED BLOOD COUNT 3.46 10^6/uL (4.00-5.40); RED CELL DISTRIBUTION WIDTH 15.5 % (11.5-14.5); WHITE BLOOD COUNT 9.6 10^3/uL (4.0-10.0)
[2018-06-16 06:44] LABS: ANION GAP 9 MEQ/L (8-16); BLOOD UREA NITROGEN 43 MG/DL (7-18); CALCIUM LEVEL 7.6 MG/DL (8.8-10.2); CARBON DIOXIDE LEVEL 25 MEQ/L (21-32); CHLORIDE LEVEL 111 MEQ/L (98-107); CREATININE FOR GFR 1.97 MG/DL (0.55-1.30); GLOMERULAR FILTRATION RATE 26.3 (>39); GLUCOSE, FASTING 176 MG/DL (70-100); POTASSIUM SERUM 4.3 MEQ/L (3.5-5.1); SODIUM LEVEL 145 MEQ/L (136-145)
[2018-06-16] MEDS: HumaLOG INSULIN (NovoLOG) PER UNIT SC (08:28)
[2018-06-16] MEDS: MULTIVITAMINS/MINERALS THERAP 1 TAB PO (08:28)
[2018-06-16] MEDS: TAMSULOSIN 0.4 MG CAP PO (08:28)
[2018-06-16] MEDS: FERROUS SULFATE 325MG TAB PO (08:28)
[2018-06-16] MEDS: VITAMIN D 1,000 INTERNATIONAL UNITS TABLET PO (08:28)
[2018-06-16] MEDS: DULoxetine 30 MG CAP (CYMBALTA) PO (08:28)
[2018-06-16] MEDS: GABAPENTIN 300 MG CAP PO (08:28)
[2018-06-16] MEDS: OMEPRAZOLE 20 MG CAP PO (08:28)
[2018-06-16] MEDS: CEFDINIR 300 MG CAP (OMNICEF) PO (08:28)
[2018-06-16] MEDS: DOCUSATE SODIUM 100 MG CAP PO (08:28)
[2018-06-16] MEDS: PERCOCET 5MG/325MG TAB PO (08:29)
[2018-06-16] MEDS: CHLORHEXIDINE ORAL RINSE 0.12%/15ML 120ML BOTTLE SSP (08:29)
== END 2018-06-16 11:45 | DRG 871 ==
LOC: M ED 22:58 → M MSPAV 06-15 18:07 → M ED INP 06-10 02:19 → M PCU 06-10 04:02
PROC: 0T768DZ Dilation of Right Ureter with Intraluminal Device, Via Natural or Artificial Opening Endoscopic (ICD-10-PCS; 2018-06-10 08:23)
PROC: 02HV33Z Insertion of Infusion Device into Superior Vena Cava, Percutaneous Approach (ICD-10-PCS; principal; 2018-06-10 10:37)
DX: A41.51 Sepsis due to Escherichia coli [E. coli] (principal); G93.41 Metabolic encephalopathy; N13.6 Pyonephrosis; N17.9 Acute kidney failure, unspecified; E87.0 Hyperosmolality and hypernatremia; E87.2 Acidosis; E78.2 Mixed hyperlipidemia; F41.8 Other specified anxiety disorders; E11.42 Type 2 diabetes mellitus with diabetic polyneuropathy; Z66 Do not resuscitate; D50.9 Iron deficiency anemia, unspecified; E03.9 Hypothyroidism, unspecified; G25.81 Restless legs syndrome; I10 Essential (primary) hypertension; R65.20 Severe sepsis without septic shock; K21.9 Gastro-esophageal reflux disease without esophagitis; M79.7 Fibromyalgia; K59.09 Other constipation; M19.90 Unspecified osteoarthritis, unspecified site; E55.9 Vitamin D deficiency, unspecified; R11.2 Nausea with vomiting, unspecified; R30.0 Dysuria; R39.15 Urgency of urination; Z79.899 Other long term (current) drug therapy; Z91.040 Latex allergy status; Z79.4 Long term (current) use of insulin

== ENCOUNTER → 2018-06-09 | Outpatient (CLI) | payer MEDICARE, MEDICAID ==
[~2018-06-09] MED LIST: CONRAY-60 60% 50ML VIAL (Q9961) As Ordered; LIDOCAINE 2% 5ML JELLY UROJET As Ordered
== END ==
LOC: M RAD 10:59
DX: M43.02 Spondylolysis, cervical region (principal); M47.892 Other spondylosis, cervical region

== ENCOUNTER 2018-06-16 13:46 | Emergency (ER) | payer MEDICARE, MEDICAID, OTHER ==
[2018-06-16 16:30] LABS: HEMATOCRIT 32.7 % (36.0-47.0); HEMOGLOBIN 10.6 g/dl (12.0-15.5); MEAN CORPUSCULAR HEMOGLOBIN 27.5 pg (27.0-33.0); MEAN CORPUSCULAR HGB CONC 32.4 g/dl (32.0-36.5); MEAN CORPUSCULAR VOLUME 84.9 fl (80.0-96.0); PLATELET COUNT, AUTOMATED 225 10^3/uL (150-450); RED BLOOD COUNT 3.85 10^6/uL (4.00-5.40); RED CELL DISTRIBUTION WIDTH 15.4 % (11.5-14.5); WHITE BLOOD COUNT 10.6 10^3/uL (4.0-10.0)
[2018-06-16 16:32] LABS: POS COUNT POS FLAG; POSITIVE MORPH POS FLAG
[2018-06-16 16:33] LABS: ADD MANUAL DIFFER YES; DIFF SLIDE NUMBER 291
[2018-06-16] MEDS: oxyCODONE 5MG TAB PO (16:38)
[2018-06-16] MEDS: NITROGLYCERIN 2% OINT 1 GM *U/D* PKT TOP (16:40)
[2018-06-16 16:42] LABS: PROTHROMBIN TIME 13.3 SECONDS (12.1-14.4)
[2018-06-16 16:43] LABS: PARTIAL THROMBOPLASTIN TIME 27.5 SECONDS (25.4-37.6)
[2018-06-16] MEDS: hydrALAZINE INJ 20 MG/ML VIAL IV (16:43)
[2018-06-16 16:58] LABS: ALKALINE PHOSPHATASE 102 U/L (45-117); ALT/SGPT 31 U/L (12-78); ANION GAP 12 MEQ/L (8-16); AST/SGOT 20 U/L (7-37); BILIRUBIN,DIRECT < 0.1 MG/DL (0.0-0.2); BILIRUBIN,TOTAL 0.3 MG/DL (0.2-1.0); BLOOD UREA NITROGEN 42 MG/DL (7-18); CALCIUM LEVEL 8.2 MG/DL (8.8-10.2); CARBON DIOXIDE LEVEL 19 MEQ/L (21-32); CHLORIDE LEVEL 109 MEQ/L (98-107); CPK CREATINE PHOSPHOKINASE 102 U/L (26-192); GLOMERULAR FILTRATION RATE 27.4 (>39); GLUCOSE, FASTING 280 MG/DL (70-100); LIPASE 433 U/L (73-393); POTASSIUM SERUM 4.6 MEQ/L (3.5-5.1); SODIUM LEVEL 140 MEQ/L (136-145); TROPONIN I 0.13 NG/ML (< 0.10)
[2018-06-16 17:11] LABS: CK-MB VALUE MASS 3.9 NG/ML (<3.6); MB/CK RELATIVE INDEX 3.82 (< OR =4); NT-PRO BNP 31895 PG/ML (<450)
[2018-06-16 17:32] LABS: ATYPICAL LYMPH 10 % (0-5); BANDS 9 % (< 11); BASOPHILS 1 % (0-4); LYMPHOCYTES 4 % (16-52); METAMYELOCYTES 1 % (0-0); MONOCYTES 3 % (0-8); NEUTROPHILS 72 % (35-75)
[2018-06-16 17:34] LABS: PLATELET ESTIMATE NORMAL (NORMAL); POLYCHROMASIA 1+; TOXIC VACUOLATION 1+
[2018-06-16] MEDS ORDERED: LIDOCAINE 1% MDV 20ML VIAL As Ordered (17:54)
[2018-06-16] MEDS: LIDOCAINE 1% MDV 20ML VIAL SC (18:00)
== END 2018-06-16 21:20 | disposition home or self-care (01) ==
LOC: M ED 13:46
DX: S43.012A Anterior subluxation of left humerus, initial encounter (principal); M75.102 Unspecified rotator cuff tear or rupture of left shoulder, not specified as traumatic; I11.9 Hypertensive heart disease without heart failure; R06.02 Shortness of breath; J90 Pleural effusion, not elsewhere classified; J84.10 Pulmonary fibrosis, unspecified
CPT/HCPCS: 71045

== ENCOUNTER → 2018-06-20 | Outpatient (REF) | payer MEDICARE, MEDICAID ==
[2018-06-20 16:51] LABS: ANION GAP 6 MEQ/L (8-16); BLOOD UREA NITROGEN 36 MG/DL (7-18); CALCIUM LEVEL 8.7 MG/DL (8.8-10.2); CARBON DIOXIDE LEVEL 31 MEQ/L (21-32); CHLORIDE LEVEL 106 MEQ/L (98-107); CREATININE FOR GFR 1.43 MG/DL (0.55-1.30); GLOMERULAR FILTRATION RATE 38.1 (>39); GLUCOSE, FASTING 48 MG/DL (70-100); NT-PRO BNP 8350 PG/ML (<450); SODIUM LEVEL 143 MEQ/L (136-145)
[2018-06-20 16:54] LABS: POTASSIUM SERUM 5.9 MEQ/L (3.5-5.1)
== END ==
DX: I50.9 Heart failure, unspecified (principal)
CPT/HCPCS: 80048

== ENCOUNTER → 2018-06-21 | Outpatient (REF) ==
[2018-06-21 10:26] LABS: POTASSIUM SERUM 4.7 MEQ/L (3.5-5.1)
== END ==
DX: E83.42 Hypomagnesemia (principal)

== ENCOUNTER → 2018-06-28 | Outpatient (REF) | payer MEDICARE, MEDICAID ==
[2018-06-28 11:27] LABS: ANION GAP 7 MEQ/L (8-16); BLOOD UREA NITROGEN 33 MG/DL (7-18); CALCIUM LEVEL 9.6 MG/DL (8.8-10.2); CARBON DIOXIDE LEVEL 31 MEQ/L (21-32); CHLORIDE LEVEL 103 MEQ/L (98-107); GLOMERULAR FILTRATION RATE 51.5 (>39); GLUCOSE, FASTING 163 MG/DL (70-100); NT-PRO BNP 17089 PG/ML (<450); POTASSIUM SERUM 4.3 MEQ/L (3.5-5.1); SODIUM LEVEL 141 MEQ/L (136-145)
== END ==
DX: E11.9 Type 2 diabetes mellitus without complications (principal)
CPT/HCPCS: 80048

== ENCOUNTER → 2018-06-30 | Outpatient (CLI) | payer MEDICARE, MEDICAID | LOC: M RAD 13:07 | DX: N20.0 Calculus of kidney (principal); N28.1 Cyst of kidney, acquired | CPT/HCPCS: 76775 ==

== ENCOUNTER → 2018-07-02 | Outpatient (REF) | payer MEDICARE, MEDICAID ==
[2018-07-02 18:41] LABS: BASO # 0.1 10^3/uL (0.0-0.2); BASO % 0.5 % (0.0-1.0); EOS # 0.3 10^3/uL (0.0-0.50); EOS % 3.2 % (0.0-3.0); HEMOGLOBIN 10.4 g/dl (12.0-15.5); IMMATURE GRANULOCYTE % 0.7 % (0-3.0); LYMPH # 1.5 10^3/uL (1.5-4.5); LYMPH % 14.1 % (24.0-44.0); MEAN CORPUSCULAR HEMOGLOBIN 27.6 pg (27.0-33.0); MEAN CORPUSCULAR HGB CONC 31.5 g/dl (32.0-36.5); MEAN CORPUSCULAR VOLUME 87.5 fl (80.0-96.0); MONO # 0.5 10^3/uL (0.0-0.8); MONO % 4.7 % (0.0-5.0); NEUTROPHILS # 8.2 10^3/uL (1.8-7.7); NEUTROPHILS % 76.8 % (36.0-66.0); PLATELET COUNT, AUTOMATED 233 10^3/uL (150-450); RED BLOOD COUNT 3.77 10^6/uL (4.00-5.40); RED CELL DISTRIBUTION WIDTH 16.1 % (11.5-14.5); WHITE BLOOD COUNT 10.7 10^3/uL (4.0-10.0)
[2018-07-02 18:45] LABS: APPEARANCE, URINE CLOUDY (CLEAR); BACTERIA, URINE AUTO 2+ (NEGATIVE); BILIRUBIN, URINE AUTO NEGATIVE (NEGATIVE); BLOOD, URINE BLOOD 2+ (NEGATIVE); COLOR, URINE YELLOW (YELLOW); GLUCOSE, URINE (UA) AUTO 2+ mg/dL (NEGATIVE); KETONE, URINE AUTO NEGATIVE (NEGATIVE); LEUKOCYTE ESTERASE, URINE AUTO 3+ (NEGATIVE); MUCUS, URINE SMALL (NEGATIVE); NITRITE, URINE AUTO NEGATIVE (NEGATIVE); PROTEIN, URINE AUTO 2+ mg/dL (NEGATIVE); RBC, URINE AUTO 9 /HPF (0-3); SPECIFIC GRAVITY URINE AUTO 1.009 (1.002-1.035); SQUAMOUS EPITHELIAL CELL UR AU 0 /HPF (0-6); UROBILINOGEN, URINE AUTO 0.2 mg/dL (0.0-2.0); WBC, URINE AUTO TNTC /HPF (0-3)
[2018-07-02 18:52] LABS: ANION GAP 11 MEQ/L (8-16); BLOOD UREA NITROGEN 43 MG/DL (7-18); CALCIUM LEVEL 8.5 MG/DL (8.8-10.2); CARBON DIOXIDE LEVEL 25 MEQ/L (21-32); CHLORIDE LEVEL 104 MEQ/L (98-107); GLOMERULAR FILTRATION RATE 31.2 (>39); GLUCOSE, FASTING 243 MG/DL (70-100); NT-PRO BNP 4602 PG/ML (<450); POTASSIUM SERUM 4.8 MEQ/L (3.5-5.1); SODIUM LEVEL 140 MEQ/L (136-145)
== END ==
DX: R50.9 Fever, unspecified (principal)
CPT/HCPCS: 80048

== ENCOUNTER → 2018-07-08 | Outpatient (REF) | payer MEDICARE, MEDICAID ==
[2018-07-08 11:50] LABS: HEMATOCRIT 32.9 % (36.0-47.0); HEMOGLOBIN 10.4 g/dl (12.0-15.5); MEAN CORPUSCULAR HEMOGLOBIN 27.7 pg (27.0-33.0); MEAN CORPUSCULAR HGB CONC 31.6 g/dl (32.0-36.5); MEAN CORPUSCULAR VOLUME 87.7 fl (80.0-96.0); PLATELET COUNT, AUTOMATED 291 10^3/uL (150-450); RED BLOOD COUNT 3.75 10^6/uL (4.00-5.40); RED CELL DISTRIBUTION WIDTH 15.6 % (11.5-14.5)
[2018-07-08 12:03] LABS: INR 0.98; PROTHROMBIN TIME 13.1 SECONDS (12.1-14.4)
[2018-07-08 12:04] LABS: PARTIAL THROMBOPLASTIN TIME 29.7 SECONDS (25.4-37.6)
[2018-07-08 12:31] LABS: ANION GAP 7 MEQ/L (8-16); BLOOD UREA NITROGEN 34 MG/DL (7-18); CALCIUM LEVEL 9.4 MG/DL (8.8-10.2); CARBON DIOXIDE LEVEL 30 MEQ/L (21-32); CHLORIDE LEVEL 102 MEQ/L (98-107); CREATININE FOR GFR 1.44 MG/DL (0.55-1.30); GLOMERULAR FILTRATION RATE 37.8 (>39); GLUCOSE, FASTING 160 MG/DL (70-100); POTASSIUM SERUM 5.2 MEQ/L (3.5-5.1); SODIUM LEVEL 139 MEQ/L (136-145)
== END ==
DX: Z01.818 Encounter for other preprocedural examination (principal); N20.0 Calculus of kidney
CPT/HCPCS: 80048

== ENCOUNTER → 2018-07-22 | Outpatient (REF) | payer MEDICARE, MEDICAID ==
[2018-07-22 09:46] LABS: HEMATOCRIT 35.2 % (36.0-47.0); HEMOGLOBIN 11.3 g/dl (12.0-15.5); MEAN CORPUSCULAR HEMOGLOBIN 27.6 pg (27.0-33.0); MEAN CORPUSCULAR HGB CONC 32.1 g/dl (32.0-36.5); MEAN CORPUSCULAR VOLUME 86.1 fl (80.0-96.0); PLATELET COUNT, AUTOMATED 285 10^3/uL (150-450); RED BLOOD COUNT 4.09 10^6/uL (4.00-5.40); RED CELL DISTRIBUTION WIDTH 16.2 % (11.5-14.5); WHITE BLOOD COUNT 6.3 10^3/uL (4.0-10.0)
[2018-07-22 09:58] LABS: INR 0.98; PROTHROMBIN TIME 13.1 SECONDS (12.1-14.4)
[2018-07-22 09:59] LABS: PARTIAL THROMBOPLASTIN TIME 28.6 SECONDS (25.4-37.6)
[2018-07-22 10:23] LABS: ANION GAP 12 MEQ/L (8-16); BLOOD UREA NITROGEN 55 MG/DL (7-18); CARBON DIOXIDE LEVEL 23 MEQ/L (21-32); CHLORIDE LEVEL 105 MEQ/L (98-107); CREATININE FOR GFR 1.29 MG/DL (0.55-1.30); GLOMERULAR FILTRATION RATE 42.9 (>39); GLUCOSE, FASTING 143 MG/DL (70-100); POTASSIUM SERUM 4.9 MEQ/L (3.5-5.1); SODIUM LEVEL 140 MEQ/L (136-145)
[2018-07-22 12:37] LABS: APPEARANCE, URINE HAZY (CLEAR); BACTERIA, URINE AUTO 2+ (NEGATIVE); BILIRUBIN, URINE AUTO NEGATIVE (NEGATIVE); BLOOD, URINE BLOOD NEGATIVE (NEGATIVE); COLOR, URINE YELLOW (YELLOW); GLUCOSE, URINE (UA) AUTO NEGATIVE (NEGATIVE); KETONE, URINE AUTO NEGATIVE (NEGATIVE); LEUKOCYTE ESTERASE, URINE AUTO 3+ (NEGATIVE); NITRITE, URINE AUTO NEGATIVE (NEGATIVE); PROTEIN, URINE AUTO 2+ mg/dL (NEGATIVE); RBC, URINE AUTO 6 /HPF (0-3); SQUAMOUS EPITHELIAL CELL UR AU 0 /HPF (0-6); UROBILINOGEN, URINE AUTO 0.2 mg/dL (0.0-2.0); WBC, URINE AUTO TNTC /HPF (0-3)
== END ==
DX: Z01.818 Encounter for other preprocedural examination (principal); Z79.899 Other long term (current) drug therapy
CPT/HCPCS: 80048

== ENCOUNTER → 2018-08-02 | Outpatient (REF) | payer MEDICARE, MEDICAID ==
[2018-08-02 11:29] LABS: ESTIMATED AVERAGE GLUCOSE 166 MG/DL (60-110); HEMOGLOBIN A1c 7.4 %
== END ==
DX: N39.0 Urinary tract infection, site not specified (principal); E11.9 Type 2 diabetes mellitus without complications
CPT/HCPCS: 83036

== ENCOUNTER → 2018-08-03 | Outpatient (REF) | payer MEDICARE, MEDICAID ==
[2018-08-03 09:20] LABS: AMORPHOUS SEDIMENT SMALL (NEGATIVE); APPEARANCE, URINE CLOUDY (CLEAR); BACTERIA, URINE AUTO 1+ (NEGATIVE); BILIRUBIN, URINE AUTO NEGATIVE (NEGATIVE); BLOOD, URINE BLOOD 1+ (NEGATIVE); COLOR, URINE YELLOW (YELLOW); GLUCOSE, URINE (UA) AUTO NEGATIVE (NEGATIVE); KETONE, URINE AUTO NEGATIVE (NEGATIVE); LEUKOCYTE ESTERASE, URINE AUTO 3+ (NEGATIVE); MUCUS, URINE SMALL (NEGATIVE); NITRITE, URINE AUTO NEGATIVE (NEGATIVE); PROTEIN, URINE AUTO 2+ mg/dL (NEGATIVE); RBC, URINE AUTO 18 /HPF (0-3); SPECIFIC GRAVITY URINE AUTO 1.011 (1.002-1.035); SQUAMOUS EPITHELIAL CELL UR AU 0 /HPF (0-6); UROBILINOGEN, URINE AUTO 0.2 mg/dL (0.0-2.0); WBC, URINE AUTO TNTC /HPF (0-3)
== END ==
DX: N39.0 Urinary tract infection, site not specified (principal)
CPT/HCPCS: 81001

== ENCOUNTER → 2018-08-14 | Outpatient (REF) | payer MEDICARE, MEDICAID ==
[2018-08-14 14:40] LABS: APPEARANCE, URINE TURBID (CLEAR); BACTERIA, URINE AUTO 2+ (NEGATIVE); BILIRUBIN, URINE AUTO NEGATIVE (NEGATIVE); BLOOD, URINE BLOOD 1+ (NEGATIVE); COLOR, URINE YELLOW (YELLOW); GLUCOSE, URINE (UA) AUTO NEGATIVE (NEGATIVE); KETONE, URINE AUTO NEGATIVE (NEGATIVE); LEUKOCYTE ESTERASE, URINE AUTO 3+ (NEGATIVE); NITRITE, URINE AUTO NEGATIVE (NEGATIVE); PROTEIN, URINE AUTO 2+ mg/dL (NEGATIVE); RBC, URINE AUTO 36 /HPF (0-3); SPECIFIC GRAVITY URINE AUTO 1.009 (1.002-1.035); SQUAMOUS EPITHELIAL CELL UR AU 0 /HPF (0-6); UROBILINOGEN, URINE AUTO 0.2 mg/dL (0.0-2.0); WBC, URINE AUTO TNTC /HPF (0-3)
== END ==
DX: R39.89 Other symptoms and signs involving the genitourinary system (principal)
CPT/HCPCS: 81001

== ENCOUNTER 2018-08-23 18:03 | Emergency (ER) | payer MEDICARE, MEDICAID ==
[2018-08-23 19:30] LABS: BASO # 0.1 10^3/uL (0.0-0.2); BASO % 0.6 % (0.0-1.0); EOS # 0.3 10^3/uL (0.0-0.50); EOS % 2.4 % (0.0-3.0); HEMATOCRIT 33.3 % (36.0-47.0); HEMOGLOBIN 10.6 g/dl (12.0-15.5); IMMATURE GRANULOCYTE % 0.6 % (0-3.0); LYMPH # 1.8 10^3/uL (1.5-4.5); LYMPH % 14.1 % (24.0-44.0); MEAN CORPUSCULAR HEMOGLOBIN 27.4 pg (27.0-33.0); MEAN CORPUSCULAR HGB CONC 31.8 g/dl (32.0-36.5); MONO # 0.6 10^3/uL (0.0-0.8); MONO % 4.6 % (0.0-5.0); NEUTROPHILS # 9.8 10^3/uL (1.8-7.7); NEUTROPHILS % 77.7 % (36.0-66.0); PLATELET COUNT, AUTOMATED 222 10^3/uL (150-450); RED BLOOD COUNT 3.87 10^6/uL (4.00-5.40); RED CELL DISTRIBUTION WIDTH 15.6 % (11.5-14.5); WHITE BLOOD COUNT 12.6 10^3/uL (4.0-10.0)
[2018-08-23 19:51] LABS: ANION GAP 12 MEQ/L (8-16); BLOOD UREA NITROGEN 41 MG/DL (7-18); CALCIUM LEVEL 8.7 MG/DL (8.8-10.2); CARBON DIOXIDE LEVEL 25 MEQ/L (21-32); CHLORIDE LEVEL 100 MEQ/L (98-107); GLOMERULAR FILTRATION RATE 42.5 (>39); GLUCOSE, FASTING 227 MG/DL (70-100); POTASSIUM SERUM 4.3 MEQ/L (3.5-5.1); SODIUM LEVEL 137 MEQ/L (136-145)
[2018-08-23 19:53] LABS: KETONE, URINE AUTO RFX NEGATIVE (NEGATIVE); RBC, URINE AUTO RFX 18 /HPF (0-3); SQUAM EPITHELIAL CELL UR AURFX 2 /HPF (0-6); YEAST LIKE CELL URINE AUTO RFX MODERATE
[2018-08-23 19:54] LABS: LEUKOCYTE ESTERASE UR AUTO RFX 3+ (NEGATIVE); NITRITE, URINE AUTO RFX POSITIVE (NEGATIVE); WBC, URINE AUTO RFX TNTC /HPF (0-3)
== END 2018-08-23 22:46 | disposition home or self-care (01) ==
LOC: M ED 18:03
DX: R50.9 Fever, unspecified (principal); J84.10 Pulmonary fibrosis, unspecified; E11.9 Type 2 diabetes mellitus without complications; F32.9 Major depressive disorder, single episode, unspecified; F41.9 Anxiety disorder, unspecified; I10 Essential (primary) hypertension; G80.0 Spastic quadriplegic cerebral palsy; E78.5 Hyperlipidemia, unspecified; Z79.899 Other long term (current) drug therapy; Z79.01 Long term (current) use of anticoagulants; Z79.4 Long term (current) use of insulin; Z87.442 Personal history of urinary calculi; Z96.0 Presence of urogenital implants; Z91.040 Latex allergy status; Z88.8 Allergy status to other drugs, medicaments and biological substances
CPT/HCPCS: 71045

== ENCOUNTER → 2018-08-25 | Outpatient (REF) | payer MEDICARE, MEDICAID ==
[2018-08-25 08:12] LABS: HEMATOCRIT 35.7 % (36.0-47.0); HEMOGLOBIN 11.1 g/dl (12.0-15.5); MEAN CORPUSCULAR HEMOGLOBIN 27.3 pg (27.0-33.0); MEAN CORPUSCULAR HGB CONC 31.1 g/dl (32.0-36.5); MEAN CORPUSCULAR VOLUME 87.7 fl (80.0-96.0); PLATELET COUNT, AUTOMATED 170 10^3/uL (150-450); RED BLOOD COUNT 4.07 10^6/uL (4.00-5.40); RED CELL DISTRIBUTION WIDTH 15.6 % (11.5-14.5)
[2018-08-25 08:28] LABS: ANION GAP 10 MEQ/L (8-16); BLOOD UREA NITROGEN 34 MG/DL (7-18); CALCIUM LEVEL 8.5 MG/DL (8.8-10.2); CARBON DIOXIDE LEVEL 26 MEQ/L (21-32); CHLORIDE LEVEL 104 MEQ/L (98-107); CREATININE FOR GFR 0.96 MG/DL (0.55-1.30); GLOMERULAR FILTRATION RATE > 60.0 (>39); GLUCOSE, FASTING 195 MG/DL (70-100); POTASSIUM SERUM 4.4 MEQ/L (3.5-5.1); SODIUM LEVEL 140 MEQ/L (136-145)
[2018-08-25 08:32] LABS: LACTIC ACID SEPSIS PROTOCOL 1.8 MMOL/L (0.4-2.0)
== END ==
DX: R50.9 Fever, unspecified (principal)

== ENCOUNTER → 2018-08-25 | Outpatient (CLI) | payer MEDICARE, MEDICAID | LOC: M RAD 17:12 | DX: R50.9 Fever, unspecified (principal); Z97.8 Presence of other specified devices | CPT/HCPCS: 74176 ==

== ENCOUNTER → 2018-08-26 | Outpatient (REF) | payer MEDICARE, MEDICAID ==
[2018-08-26 09:46] LABS: HEMATOCRIT 35.3 % (36.0-47.0); HEMOGLOBIN 11.1 g/dl (12.0-15.5); MEAN CORPUSCULAR HEMOGLOBIN 27.2 pg (27.0-33.0); MEAN CORPUSCULAR HGB CONC 31.4 g/dl (32.0-36.5); MEAN CORPUSCULAR VOLUME 86.5 fl (80.0-96.0); PLATELET COUNT, AUTOMATED 224 10^3/uL (150-450); RED BLOOD COUNT 4.08 10^6/uL (4.00-5.40); RED CELL DISTRIBUTION WIDTH 15.6 % (11.5-14.5); WHITE BLOOD COUNT 7.8 10^3/uL (4.0-10.0)
[2018-08-26 10:08] LABS: ANION GAP 8 MEQ/L (8-16); BLOOD UREA NITROGEN 31 MG/DL (7-18); CALCIUM LEVEL 8.6 MG/DL (8.8-10.2); CARBON DIOXIDE LEVEL 29 MEQ/L (21-32); CHLORIDE LEVEL 104 MEQ/L (98-107); CREATININE FOR GFR 0.86 MG/DL (0.55-1.30); GLOMERULAR FILTRATION RATE > 60.0 (>39); GLUCOSE, FASTING 98 MG/DL (70-100); POTASSIUM SERUM 4.1 MEQ/L (3.5-5.1); SODIUM LEVEL 141 MEQ/L (136-145)
== END ==
DX: R50.9 Fever, unspecified (principal)
CPT/HCPCS: 80048

== ENCOUNTER → 2018-08-29 | Outpatient (CLI) | payer MEDICARE, MEDICAID ==
[~2018-08-29] MED LIST changes: -CONRAY-60 60% 50ML VIAL (Q9961) As Ordered; +LIDOCAINE 1% MDV 20ML VIAL As Ordered; -LIDOCAINE 2% 5ML JELLY UROJET As Ordered
== END ==
LOC: M RADPRO 13:23
DX: N39.0 Urinary tract infection, site not specified (principal); A41.9 Sepsis, unspecified organism; Z79.4 Long term (current) use of insulin; Z79.899 Other long term (current) drug therapy
CPT/HCPCS: 36569

== ENCOUNTER → 2018-08-29 | Outpatient (REF) | payer MEDICARE, MEDICAID ==
[2018-08-29 09:56] LABS: HEMATOCRIT 34.6 % (36.0-47.0); HEMOGLOBIN 10.8 g/dl (12.0-15.5); MEAN CORPUSCULAR HEMOGLOBIN 26.9 pg (27.0-33.0); MEAN CORPUSCULAR HGB CONC 31.2 g/dl (32.0-36.5); MEAN CORPUSCULAR VOLUME 86.1 fl (80.0-96.0); PLATELET COUNT, AUTOMATED 254 10^3/uL (150-450); RED BLOOD COUNT 4.02 10^6/uL (4.00-5.40); RED CELL DISTRIBUTION WIDTH 15.8 % (11.5-14.5); WHITE BLOOD COUNT 9.3 10^3/uL (4.0-10.0)
[2018-08-29 10:32] LABS: ANION GAP 12 MEQ/L (8-16); BLOOD UREA NITROGEN 31 MG/DL (7-18); CALCIUM LEVEL 8.5 MG/DL (8.8-10.2); CARBON DIOXIDE LEVEL 26 MEQ/L (21-32); CHLORIDE LEVEL 103 MEQ/L (98-107); CREATININE FOR GFR 0.99 MG/DL (0.55-1.30); GLOMERULAR FILTRATION RATE 58.2 (>39); GLUCOSE, FASTING 163 MG/DL (70-100); POTASSIUM SERUM 4.4 MEQ/L (3.5-5.1); SODIUM LEVEL 141 MEQ/L (136-145)
== END ==
DX: N39.0 Urinary tract infection, site not specified (principal)
CPT/HCPCS: 80048

== ENCOUNTER → 2018-09-02 | Outpatient (REF) | payer MEDICARE, MEDICAID ==
[2018-09-02 07:17] LABS: HEMATOCRIT 32.9 % (36.0-47.0); HEMOGLOBIN 10.7 g/dl (12.0-15.5); MEAN CORPUSCULAR HEMOGLOBIN 27.4 pg (27.0-33.0); MEAN CORPUSCULAR HGB CONC 32.5 g/dl (32.0-36.5); MEAN CORPUSCULAR VOLUME 84.4 fl (80.0-96.0); PLATELET COUNT, AUTOMATED 260 10^3/uL (150-450); RED CELL DISTRIBUTION WIDTH 15.2 % (11.5-14.5); WHITE BLOOD COUNT 9.1 10^3/uL (4.0-10.0)
[2018-09-02 07:46] LABS: ANION GAP 8 MEQ/L (8-16); BLOOD UREA NITROGEN 27 MG/DL (7-18); CALCIUM LEVEL 9.3 MG/DL (8.8-10.2); CARBON DIOXIDE LEVEL 29 MEQ/L (21-32); CHLORIDE LEVEL 105 MEQ/L (98-107); GLOMERULAR FILTRATION RATE > 60.0 (>39); GLUCOSE, FASTING 175 MG/DL (70-100); POTASSIUM SERUM 4.2 MEQ/L (3.5-5.1); SODIUM LEVEL 142 MEQ/L (136-145)
== END ==
DX: N39.0 Urinary tract infection, site not specified (principal); A41.9 Sepsis, unspecified organism
CPT/HCPCS: 80048

== ENCOUNTER → 2018-09-20 | Outpatient (REF) | payer MEDICARE, MEDICAID ==
[2018-09-20 10:16] LABS: APPEARANCE, URINE CLOUDY (CLEAR); BACTERIA, URINE AUTO 1+ (NEGATIVE); BILIRUBIN, URINE AUTO NEGATIVE (NEGATIVE); BLOOD, URINE BLOOD 2+ (NEGATIVE); COLOR, URINE YELLOW (YELLOW); GLUCOSE, URINE (UA) AUTO NEGATIVE (NEGATIVE); KETONE, URINE AUTO NEGATIVE (NEGATIVE); LEUKOCYTE ESTERASE, URINE AUTO 3+ (NEGATIVE); NITRITE, URINE AUTO NEGATIVE (NEGATIVE); PROTEIN, URINE AUTO 2+ mg/dL (NEGATIVE); RBC, URINE AUTO 130 /HPF (0-3); RENAL EPITHELIAL CELLS 2 /HPF; SPECIFIC GRAVITY URINE AUTO 1.009 (1.002-1.035); SQUAMOUS EPITHELIAL CELL UR AU 8 /HPF (0-6); TRANSITIONAL EPITHELIAL AUTO 2 /HPF; UROBILINOGEN, URINE AUTO 0.2 mg/dL (0.0-2.0); WBC, URINE AUTO TNTC /HPF (0-3); YEAST LIKE CELL URINE AUTO SMALL
== END ==
DX: N39.0 Urinary tract infection, site not specified (principal)
CPT/HCPCS: 81001

== ENCOUNTER → 2018-09-27 | Outpatient (REF) | payer MEDICARE, MEDICAID ==
[2018-09-27 10:06] LABS: HEMATOCRIT 37.9 % (36.0-47.0); HEMOGLOBIN 11.9 g/dl (12.0-15.5); MEAN CORPUSCULAR HEMOGLOBIN 26.9 pg (27.0-33.0); MEAN CORPUSCULAR HGB CONC 31.4 g/dl (32.0-36.5); MEAN CORPUSCULAR VOLUME 85.6 fl (80.0-96.0); PLATELET COUNT, AUTOMATED 255 10^3/uL (150-450); RED BLOOD COUNT 4.43 10^6/uL (4.00-5.40); RED CELL DISTRIBUTION WIDTH 15.6 % (11.5-14.5); WHITE BLOOD COUNT 7.4 10^3/uL (4.0-10.0)
[2018-09-27 10:28] LABS: ALBUMIN/GLOBULIN RATIO 0.83 (1.00-1.93); ALKALINE PHOSPHATASE 112 U/L (45-117); ALT/SGPT 19 U/L (12-78); ANION GAP 8 MEQ/L (8-16); AST/SGOT 12 U/L (7-37); BILIRUBIN,TOTAL 0.3 MG/DL (0.2-1.0); BLOOD UREA NITROGEN 38 MG/DL (7-18); CALCIUM LEVEL 9.2 MG/DL (8.8-10.2); CARBON DIOXIDE LEVEL 30 MEQ/L (21-32); CHLORIDE LEVEL 101 MEQ/L (98-107); CREATININE FOR GFR 1.12 MG/DL (0.55-1.30); GLOMERULAR FILTRATION RATE 50.5 (>39); GLUCOSE, FASTING 167 MG/DL (70-100); POTASSIUM SERUM 4.2 MEQ/L (3.5-5.1); SODIUM LEVEL 139 MEQ/L (136-145); TOTAL PROTEIN 6.6 GM/DL (6.4-8.2)
== END ==
DX: E11.9 Type 2 diabetes mellitus without complications (principal)
CPT/HCPCS: 80053

== ENCOUNTER 2018-09-30 09:49 | Day surgery (SDC) | payer MEDICARE, MEDICAID ==
[~2018-09-30 09:49] MED LIST changes: -LIDOCAINE 1% MDV 20ML VIAL As Ordered; +LIDOCAINE 1% MDV 20ML VIAL SQ
[2018-09-30] MEDS ORDERED: ceFAZolin 2 GM/D5W 50 ML IV BAG (J0690 PER 500MG) As Ordered ×2 (10:08)
[2018-09-30] MEDS ORDERED: ceFAZolin 1GM INJ (J0690 PER 500MG) As Ordered ×2 (10:08)
[2018-09-30 10:30] LABS: BEDSIDE GLUCOSE 185 MG/DL (83-110)
[2018-09-30] MEDS: LR 1,000 ML IV ×2 (10:46)
[2018-09-30] MEDS ORDERED: PROPOFOL 200 MG/20 ML VIAL As Ordered ×4 (11:19→12:49)
[2018-09-30] MEDS ORDERED: ONDANSETRON 4MG/2ML VIAL (J2405) As Ordered ×2 (11:19)
[2018-09-30] MEDS ORDERED: dexameTHASONE 4 MG/ML 1ML VIAL (J1100) As Ordered ×4 (11:19)
[2018-09-30] MEDS ORDERED: MIDAZOLAM INJ 2 MG/2 ML VIAL (J2250) As Ordered ×2 (11:19)
[2018-09-30] MEDS ORDERED: LIDOCAINE 2% INJ 100 MG/5 ML SDV (FOR ANES.) As Ordered ×2 (11:19)
[2018-09-30] MEDS ORDERED: fentaNYL 100 MCG/2 ML INJECTION (J3010) As Ordered ×2 (11:20)
[2018-09-30] MEDS: ceFAZolin SOD 1 GM in D5W MINI-BAG PLUS 50 ML IV (12:19)
[2018-09-30] MEDS: LIDOCAINE 2% 5ML JELLY UROJET As Ordered ×4 (12:21→12:24)
[2018-09-30] MEDS: CONRAY-60 60% 50ML VIAL (Q9961) As Ordered ×2 (12:26)
[2018-09-30] MEDS ORDERED: ONDANSETRON 4MG/2ML VIAL (J2405) IV ×2 (13:15)
[2018-09-30] MEDS ORDERED: LR 1,000 ML IV ×2 (13:15)
[2018-09-30] MEDS ORDERED: fentaNYL 100 MCG/2 ML INJECTION (J3010) IV ×2 (13:15)
[2018-09-30] MEDS ORDERED: PERCOCET 5MG/325MG TAB PO ×2 (13:15)
== END 2018-09-30 14:12 | disposition home or self-care (01) ==
LOC: M SDC 09:49
DX: N20.0 Calculus of kidney (principal); N20.1 Calculus of ureter; E11.9 Type 2 diabetes mellitus without complications; K21.9 Gastro-esophageal reflux disease without esophagitis; E78.5 Hyperlipidemia, unspecified; I10 Essential (primary) hypertension; Z79.899 Other long term (current) drug therapy; Z91.040 Latex allergy status; Z88.8 Allergy status to other drugs, medicaments and biological substances; Z79.4 Long term (current) use of insulin
CPT/HCPCS: 52332

== ENCOUNTER → 2018-11-01 | Outpatient (REF) | payer MEDICARE, MEDICAID ==
[~2018-11-01] MED LIST changes: +ACET30TAB PO; +ACET32TAB PO; +BISA10SU4 PR; +CEFD300CAP PO; +CIPR500T3 PO; +COLA100C5 PO; +DEBR6.5S4 AU; +DULO1CAP2 PO; +ENEMENE4 PR; +FERR325T3 PO; +FLOM0.4C39 PO; +FLON1SPR; +FLON1SPR NARES; +GABA-1171 PO; +GABA-843 PO; +GABA-845 PO; +GABA600T4 PO; +HUMA100I3 SC; +INSUHUMDS; +INSUHUMDS SC; +LANTINJ4 SC; +LASI40TA9 PO; +LEVO50TA5 PO; +LIDO1CRE2 EXT; -LIDOCAINE 1% MDV 20ML VIAL SQ; +LIPI20TA PO; +LISI2.5T5 PO; +MELA10CA2 PO; +MILK120011 PO; +MIRA0.5T PO; +MIRA1.5T4 PO; +MIRA33504 PO; +MYLASSUD PO; +NITR100C2 PO; +OCEA0.654; +OMEP40CA2 PO; +PERI12LIQ SSP; +POLY33503 PO; +PRAM0.5T7 PO; +TRAM50TA2 PO; +TYLE325T5 PO; +VITA-176 PO; +VITMTA PO; +[UNRECOGNIZED DRUG - CODE] PO
[2018-11-01 10:00] LABS: HEMATOCRIT 36.9 % (36.0-47.0); HEMOGLOBIN 11.8 g/dl (12.0-15.5); MEAN CORPUSCULAR HEMOGLOBIN 26.9 pg (27.0-33.0); MEAN CORPUSCULAR VOLUME 84.1 fl (80.0-96.0); PLATELET COUNT, AUTOMATED 223 10^3/uL (150-450); RED BLOOD COUNT 4.39 10^6/uL (4.00-5.40); WHITE BLOOD COUNT 8.8 10^3/uL (4.0-10.0)
[2018-11-01 10:35] LABS: ALBUMIN 3.1 GM/DL (3.2-5.2); ALT/SGPT 22 U/L (12-78); BILIRUBIN,DIRECT < 0.1 MG/DL (0.0-0.2); BILIRUBIN,TOTAL 0.3 MG/DL (0.2-1.0); TOTAL PROTEIN 6.3 GM/DL (6.4-8.2)
[2018-11-01 11:17] LABS: HEMOGLOBIN A1c 8.3 %
== END ==
PROVIDERS: ATTEND Internal Medicine
DX: E03.9 Hypothyroidism, unspecified (principal); E11.9 Type 2 diabetes mellitus without complications

== ENCOUNTER → 2018-11-18 | Outpatient (CLI) | payer MEDICARE, MEDICAID ==
--- NOTE | 2018-11-21 08:29 | REPMRS ---
Patient History The patient states she has not had a clinical breast exam in over a year. Family history of unknown cancer in mother. Taking unspecified hormones for 1 year. Last mammo done 20 years ago, no longer available Digital Mammo Diagnostic Bilateral: November 18, 2018 - Exam #: [id number] Bilateral CC and MLO view(s) were taken. Technologist: Kalie Reardon, Technologist No prior studies available for comparison. FINDINGS: There are scattered fibroglandular densities. Positioning is suboptimal due to patient condition. There is no evidence of dominant mass, architectural distortion, or clustered microcalcification typical of malignancy. Assessment: BI-RADS/ACR category 1 mammogram. Negative Mammogram. Recommendation Routine screening mammogram of both breasts in 1 year (for women over age 40). This patient's Lifetime Breast Cancer RIsk is estimated at 3.2 %. This mammogram was interpreted with the aid of an FDA-approved computer-aided dectection system. Electronically Signed By: Jasper Malcolm MD 11/21/18 0804
== END ==
LOC: M RAD 12:52
PROVIDERS: ATTEND Nurse Practitioner Adult Health
DX: N64.4 Mastodynia (principal); Z92.29 Personal history of other drug therapy; Z80.9 Family history of malignant neoplasm, unspecified

== ENCOUNTER → 2018-12-01 | Outpatient (REF) | payer MEDICARE, MEDICAID ==
[2018-12-01 18:36] LABS: PERCENT SATURATION 24.2 % (13.2-45.0)
[2018-12-01 19:07] LABS: ERYTHROCYTE SEDIMENTATION RATE 26 mm/hr (0-30)
== END ==
PROVIDERS: ATTEND Internal Medicine
DX: D64.9 Anemia, unspecified (principal); E11.9 Type 2 diabetes mellitus without complications; E78.5 Hyperlipidemia, unspecified

== ENCOUNTER → 2018-12-12 | Outpatient (REF) | payer MEDICARE, MEDICAID ==
[2018-12-12 13:53] LABS: BACTERIA, URINE AUTO 1+ (NEGATIVE); RBC, URINE AUTO 1 /HPF (0-3); SQUAMOUS EPITHELIAL CELL UR AU 0 /HPF (0-6); WBC, URINE AUTO 26 /HPF (0-3)
== END ==
LOC: M SMT 13:01
PROVIDERS: ATTEND Specialist
DX: N20.0 Calculus of kidney (principal)
CPT/HCPCS: 51701; 51798; 81015; 87088; 87186; G0463

== ENCOUNTER → 2018-12-19 | Outpatient (REF) | payer MEDICARE, MEDICAID ==
[2018-12-19 12:01] LABS: ALBUMIN 3.1 GM/DL (3.2-5.2); BILIRUBIN,TOTAL 0.3 MG/DL (0.2-1.0); CALCIUM LEVEL 8.6 MG/DL (8.8-10.2); CREATININE FOR GFR 1.04 MG/DL (0.55-1.30); MAGNESIUM LEVEL 1.9 MG/DL (1.8-2.4); POTASSIUM SERUM 4.6 MEQ/L (3.5-5.1); TOTAL PROTEIN 6.3 GM/DL (6.4-8.2)
== END ==
PROVIDERS: ATTEND Nurse Practitioner Adult Health
DX: I50.9 Heart failure, unspecified (principal); E11.9 Type 2 diabetes mellitus without complications; Z79.899 Other long term (current) drug therapy

== ENCOUNTER → 2018-12-27 | Outpatient (REF) | payer MEDICARE, MEDICAID | PROVIDERS: ATTEND Nurse Practitioner Adult Health | DX: R39.89 Other symptoms and signs involving the genitourinary system (principal) ==

== ENCOUNTER → 2019-01-11 | Outpatient (REF) | payer MEDICARE, MEDICAID ==
[2019-01-11 09:19] LABS: AMORPHOUS SEDIMENT SMALL (NEGATIVE); APPEARANCE, URINE CLOUDY (CLEAR); BACTERIA, URINE AUTO 3+ (NEGATIVE); BILIRUBIN, URINE AUTO NEGATIVE (NEGATIVE); BLOOD, URINE BLOOD NEGATIVE (NEGATIVE); COLOR, URINE YELLOW (YELLOW); GLUCOSE, URINE (UA) AUTO 1+ mg/dL (NEGATIVE); KETONE, URINE AUTO NEGATIVE (NEGATIVE); LEUKOCYTE ESTERASE, URINE AUTO 3+ (NEGATIVE); NITRITE, URINE AUTO NEGATIVE (NEGATIVE); PROTEIN, URINE AUTO 2+ mg/dL (NEGATIVE); RBC, URINE AUTO 5 /HPF (0-3); SPECIFIC GRAVITY URINE AUTO 1.015 (1.002-1.035); SQUAMOUS EPITHELIAL CELL UR AU 0 /HPF (0-6); UROBILINOGEN, URINE AUTO 0.2 mg/dL (0.0-2.0); WBC, URINE AUTO TNTC /HPF (0-3)
== END ==
PROVIDERS: ATTEND Internal Medicine
DX: E11.9 Type 2 diabetes mellitus without complications (principal); Z79.899 Other long term (current) drug therapy

== ENCOUNTER → 2019-01-31 | Outpatient (REF) | payer MEDICARE, MEDICAID ==
[~2019-01-31] MED LIST changes: +ACET-716 PO; -ACET30TAB PO; +LISI-1046 PO; -LISI2.5T5 PO
[2019-01-31 09:44] LABS: HEMOGLOBIN A1c 8.3 %
[2019-01-31 10:11] LABS: CHOLESTEROL RISK RATIO 4.729 (<5)
== END ==
PROVIDERS: ATTEND Internal Medicine
DX: E11.9 Type 2 diabetes mellitus without complications (principal)

== ENCOUNTER → 2019-02-17 | Outpatient (CLI) | payer MEDICARE, MEDICAID ==
--- NOTE | 2019-02-17 15:22 | REP ---
MR BRAIN WITHOUT CONTRAST: HISTORY: Infarction. A punctate focus of increased signal intensity on diffusion and T2-weighted images is present in the left basal ganglia. This is isointense in signal intensity on ADC images and is consistent with a subacute infarction. Areas of increased signal intensity on T2-weighted images are present in the periventricular and subcortical white matter. This represents small vessel ischemic disease. There is no intraparenchymal hemorrhage, acute infarct, mass, or midline shift. The ventricular system is normal in appearance. The cortical sulci are dilated consistent with minimal volume loss. There is no extracerebral collection. Mucosal thickening is present in the left ethmoid sinus. IMPRESSION: 1. Subacute left basal ganglia lacunar infarction. 2. Small vessel ischemic disease. 3. Minimal volume loss. Electronically Signed by Connor Boo MD 02/17/2019 03:33 P
--- NOTE | 2019-02-17 15:33 | REP ---
MR CERVICAL SPINE WITHOUT CONTRAST: HISTORY: Cervical pain. COMPARISON: 06/09/2018. A disc bugle is present at the C3-4 level. There is mild effacement of the thecal sac without spinal cord compression. Bilateral uncinate process and facet hypertrophy are present. These findings produce moderate narrowing of the C3 neural foramina. A disc bulge with associated osteophyte formation is present at the C4-5 level. There is moderate effacement of the thecal sac without spinal cord compression. Bilateral uncinate process and facet hypertrophy are present. These findings produce moderate and mild narrowing of the right and left C4 neural foramina respectively. A disc bulge with associated osteophyte formation is present at the C5-6 level. There is minimal spinal cord compression. Bilateral uncinate process hypertrophy is present. This produces moderate narrowing of the C5 neural foramina. A disc bulge and small right paracentral disc protrusion are present at the C6-7 level. There is minimal effacement of the thecal sac without spinal cord compression. Bilateral uncinate process hypertrophy is present. This produces mild and minimal narrowing of the right and left C6 neural foramina respectively. A disc bulge is present at the T1-2 level. There is minimal effacement of the thecal sac without spinal cord compression. The T1 neural foramina are patent on sagittal images. There is no other disc bulge or herniation. The remaining neural foramina a patent. The spinal cord is normal in signal intensity. The C3-4 through C6-7 intervertebral discs are decreased in height consistent with disc degeneration. Normal signal intensity is present in the cervical vertebral bodies. IMPRESSION: There is cervical spondylosis at the C3-4 through C6-7 levels most significant at the C5-6 level where there is minimal spinal cord compression. There is no significant change compared to the previous study. Electronically Signed by Connor Boo MD 02/17/2019 03:37 P
--- NOTE | 2019-02-17 15:46 | REP ---
MR THORACIC SPINE WITHOUT CONTRAST: HISTORY: Cervical pain. A small central disc protrusion is present at the T1-2 level. There is minimal effacement of the thecal sac without spinal cord compression. The T1 neural foramina are patent. A small left paracentral disc protrusion is present at the T3-4 level. There is minimal effacement of the thecal sac without spinal cord compression. The T3 neural foramina are patent. A small central disc protrusion is present at the T4-5 level. There is minimal effacement of the thecal sac without spinal cord compression. The T4 neural foramina are patent. A small central disc protrusion is present at the T6-7 level. There is minimal effacement of the thecal sac without spinal cord compression. The T6 neural foramina are patent. A small right paracentral disc protrusion is present at the T9-10 level. There is minimal effacement of the thecal sac without spinal cord compression. The T9 neural foramina are patent. There is no other disc bulge or herniation. The remaining neural foramina are patent. The spinal cord is normal in signal intensity. There are scattered nerve root sleeve diverticula or perineural cysts throughout the thoracic spine. A hemangioma is present in the T10 vertebral body. Normal signal intensity is present in the remaining thoracic vertebral bodies. IMPRESSION: There are small disc protrusions at the T1-2, T3-4, T4-5, T6-7 and T9-10 levels without spinal cord compression. Electronically Signed by Connor Boo MD 02/17/2019 04:02 P
--- NOTE | 2019-02-17 16:07 | REP ---
MR LUMBAR SPINE WITHOUT CONTRAST: HISTORY: Weakness. Decreased signal intensity on T2-weighted images is present in the lumbar intervertebral discs. The L3-4 and L4-5 intervertebral discs are decreased in height. These findings are consistent with disc degeneration. There is no disc bulge or herniation at the L1-2 level. The L1 nerves exit the neural foramina without compression. A diffuse disc bulge is present at the L2-3 level. There is minimal compression of the thecal sac. There is hypertrophy of the ligamenta flava and posterior articulating facets. L2 nerves exit the neural foramina without compression. A diffuse disc bulge is present at the L3-4 level. There is hypertrophy of the ligamenta flava and posterior articulating facets. These findings produce mild central canal stenosis. The L3 nerves exit the neural foramina without compression. A diffuse disc bulge is present at the L4-5 level. There is hypertrophy of the ligamenta flava and posterior articulating facets. These findings produce moderate central canal stenosis. The L4 nerves exit the neural foramina without compression. A diffuse disc bulge is present at the L5-S1 level. This abuts the thecal sac. There is hypertrophy of the ligamenta flava and posterior articulating facets. The L5 nerves exit the neural foramina without compression. The conus medullaris is normal in appearance terminating at the level of the L2-3 intervertebral discs. Normal signal intensity is present in the lumbar vertebral bodies. IMPRESSION: 1. Diffuse disc bulges at the L2-3 level with minimal thecal sac compression. 2. Mild central canal stenosis at the L3-4 level secondary to disc bulge, ligamentous, and facet hypertrophy. 3. Moderate central canal stenosis at the L4-5 level secondary to disc bulge, ligamentous and facet hypertrophy. 4. Diffuse disc bulge at the L5-S1 level. This abuts the thecal sac. Electronically Signed by Connor Boo MD 02/17/2019 04:10 P
== END ==
LOC: M PLARAD 11:47
PROVIDERS: ATTEND Psychiatry & Neurology Neurology
DX: I63.9 Cerebral infarction, unspecified (principal); I67.82 Cerebral ischemia; M47.12 Other spondylosis with myelopathy, cervical region; M47.14 Other spondylosis with myelopathy, thoracic region; M48.062 Spinal stenosis, lumbar region with neurogenic claudication; M50.21 Other cervical disc displacement, high cervical region; M50.221 Other cervical disc displacement at C4-C5 level; M50.223 Other cervical disc displacement at C6-C7 level; M51.24 Other intervertebral disc displacement, thoracic region; M51.36 Other intervertebral disc degeneration, lumbar region; M51.37 Other intervertebral disc degeneration, lumbosacral region

== ENCOUNTER → 2019-04-04 | Outpatient (REF) | payer MEDICARE, MEDICAID ==
[2019-04-04 09:41] LABS: HEMATOCRIT 37.8 % (36.0-47.0); HEMOGLOBIN 12.1 g/dl (12.0-15.5); MEAN CORPUSCULAR HEMOGLOBIN 27.5 pg (27.0-33.0); MEAN CORPUSCULAR VOLUME 85.9 fl (80.0-96.0); PLATELET COUNT, AUTOMATED 211 10^3/uL (150-450); WHITE BLOOD COUNT 8.1 10^3/uL (4.0-10.0)
[2019-04-04 10:01] LABS: PERCENT SATURATION 34.1 % (13.2-45.0)
== END ==
PROVIDERS: ATTEND Internal Medicine
DX: D50.9 Iron deficiency anemia, unspecified (principal)

== ENCOUNTER → 2019-05-02 | Outpatient (REF) | payer MEDICARE, MEDICAID ==
[2019-05-02 09:10] LABS: HEMATOCRIT 38.9 % (36.0-47.0); HEMOGLOBIN 12.4 g/dl (12.0-15.5); MEAN CORPUSCULAR HEMOGLOBIN 27.5 pg (27.0-33.0); MEAN CORPUSCULAR HGB CONC 31.9 g/dl (32.0-36.5); MEAN CORPUSCULAR VOLUME 86.3 fl (80.0-96.0); PLATELET COUNT, AUTOMATED 222 10^3/uL (150-450); RED BLOOD COUNT 4.51 10^6/uL (4.00-5.40); WHITE BLOOD COUNT 8.4 10^3/uL (4.0-10.0)
[2019-05-02 09:39] LABS: ALBUMIN 3.3 GM/DL (3.2-5.2); BILIRUBIN,DIRECT 0.1 MG/DL (0.0-0.2); BILIRUBIN,TOTAL 0.4 MG/DL (0.2-1.0); CALCIUM LEVEL 9.2 MG/DL (8.8-10.2); CREATININE FOR GFR 0.98 MG/DL (0.55-1.30); GLOMERULAR FILTRATION RATE 58.9 (>39); POTASSIUM SERUM 4.2 MEQ/L (3.5-5.1); THYROID STIMULATING HORMONE 3.76 uIU/ML (0.358-3.740); TOTAL PROTEIN 6.3 GM/DL (6.4-8.2)
[2019-05-02 10:19] LABS: HEMOGLOBIN A1c 8.2 %
== END ==
PROVIDERS: ATTEND Internal Medicine
DX: E11.9 Type 2 diabetes mellitus without complications (principal)

== ENCOUNTER → 2019-08-02 | Outpatient (REF) | payer MEDICARE, MEDICAID ==
[~2019-08-02] MED LIST changes: -ACET32TAB PO; -DULO1CAP2 PO; +DULO1CAP5 PO; +MAPA325T4 PO
[2019-08-02 11:12] LABS: HEMOGLOBIN A1c 5.9 %
== END ==
PROVIDERS: ATTEND Nurse Practitioner Adult Health
DX: E11.9 Type 2 diabetes mellitus without complications (principal)

== ENCOUNTER → 2019-08-08 | Outpatient (REF) | payer MEDICARE, MEDICAID ==
[2019-08-09 01:28] LABS: BASO # 0.1 10^3/uL (0.0-0.2); BASO % 0.4 % (0.0-1.0); EOS # 0.1 10^3/uL (0.0-0.5); EOS % 0.9 % (0.0-3.0); HEMATOCRIT 38.1 % (36.0-47.0); HEMOGLOBIN 12.1 g/dl (12.0-15.5); LYMPH # 1.1 10^3/uL (1.5-5.0); LYMPH % 9.2 % (24.0-44.0); MEAN CORPUSCULAR HEMOGLOBIN 28.4 pg (27.0-33.0); MEAN CORPUSCULAR HGB CONC 31.8 g/dl (32.0-36.5); MEAN CORPUSCULAR VOLUME 89.4 fl (80.0-96.0); MONO # 0.4 10^3/uL (0.0-0.8); MONO % 3.4 % (0.0-5.0); NEUTROPHILS # 10.5 10^3/uL (1.5-8.5); NEUTROPHILS % 85.4 % (36.0-66.0); PLATELET COUNT, AUTOMATED 211 10^3/uL (150-450); RED BLOOD COUNT 4.26 10^6/uL (4.00-5.40); WHITE BLOOD COUNT 12.3 10^3/uL (4.0-10.0)
[2019-08-09 01:38] LABS: ALBUMIN 3.1 GM/DL (3.2-5.2); BILIRUBIN,TOTAL 0.8 MG/DL (0.2-1.0); CALCIUM LEVEL 8.9 MG/DL (8.8-10.2); CREATININE FOR GFR 1.29 MG/DL (0.55-1.30); GLOMERULAR FILTRATION RATE 42.8 (>39); POTASSIUM SERUM 4.3 MEQ/L (3.5-5.1); TOTAL PROTEIN 5.9 GM/DL (6.4-8.2)
[2019-08-09 02:14] LABS: APPEARANCE, URINE TURBID (CLEAR); BACTERIA, URINE AUTO 3+ (NEGATIVE); BILIRUBIN, URINE AUTO NEGATIVE (NEGATIVE); BLOOD, URINE BLOOD 2+ (NEGATIVE); COLOR, URINE YELLOW (YELLOW); GLUCOSE, URINE (UA) AUTO NEGATIVE (NEGATIVE); KETONE, URINE AUTO TRACE mg/dL (NEGATIVE); LEUKOCYTE ESTERASE, URINE AUTO 3+ (NEGATIVE); NITRITE, URINE AUTO NEGATIVE (NEGATIVE); PROTEIN, URINE AUTO 2+ mg/dL (NEGATIVE); RBC, URINE AUTO 47 /HPF (0-3); SPECIFIC GRAVITY URINE AUTO 1.014 (1.002-1.035); SQUAMOUS EPITHELIAL CELL UR AU 0 /HPF (0-6); UROBILINOGEN, URINE AUTO 0.2 mg/dL (0.0-2.0); WBC, URINE AUTO TNTC /HPF (0-3)
== END ==
PROVIDERS: ATTEND Internal Medicine
DX: Z79.899 Other long term (current) drug therapy (principal)

== ENCOUNTER → 2019-09-28 | Outpatient (CLI) | payer MEDICARE, MEDICAID ==
[~2019-09-28] MED LIST changes: -OMEP40CA2 PO; +OMEP40CA97 PO
--- NOTE | 2019-09-28 14:10 | REP ---
MRI cervical spine: 09/28/2019. Indication: Neck pain. Comparison: 02/17/2019. Technique: Multiplanar short and long TR sequences of the cervical spine were obtained without IV Gadolinium. Findings: Image quality is degraded by patient motion. New no O significant changes are detected compared to earlier this year. The previous report was provided immediately below for details. A disc bugle is present at the C3-4 level. There is mild effacement of the thecal sac without spinal cord compression. Bilateral uncinate process and facet hypertrophy are present. These findings produce moderate narrowing of the C3 neural foramina. A disc bulge with associated osteophyte formation is present at the C4-5 level. There is moderate effacement of the thecal sac without spinal cord compression. Bilateral uncinate process and facet hypertrophy are present. These findings produce moderate and mild narrowing of the right and left C4 neural foramina respectively. A disc bulge with associated osteophyte formation is present at the C5-6 level. There is minimal spinal cord compression. Bilateral uncinate process hypertrophy is present. This produces moderate narrowing of the C5 neural foramina. A disc bulge and small right paracentral disc protrusion are present at the C6-7 level. There is minimal effacement of the thecal sac without spinal cord compression. Bilateral uncinate process hypertrophy is present. This produces mild and minimal narrowing of the right and left C6 neural foramina respectively. A disc bulge is present at the T1-2 level. There is minimal effacement of the thecal sac without spinal cord compression. The T1 neural foramina are patent on sagittal images. There is no other disc bulge or herniation. The remaining neural foramina a patent. The spinal cord is normal in signal intensity. The C3-4 through C6-7 intervertebral discs are decreased in height consistent with disc degeneration. Normal signal intensity is present in the cervical vertebral bodies. Impression: Patient motion degraded imaging. No significant changes compared to earlier this year. Degenerative sequelae most pronounced at C5/C6. Electronically Signed by Tai Bowers DO 09/28/2019 02:01 P
== END ==
LOC: M RAD 11:08
PROVIDERS: ATTEND Physical Medicine & Rehabilitation
DX: M48.02 Spinal stenosis, cervical region (principal)

== ENCOUNTER → 2019-11-10 | Outpatient (REF) | payer MEDICARE, MEDICAID ==
[2019-11-10 08:12] LABS: HEMATOCRIT 42.1 % (36.0-47.0); HEMOGLOBIN 12.9 g/dl (12.0-15.5); MEAN CORPUSCULAR HEMOGLOBIN 27.6 pg (27.0-33.0); MEAN CORPUSCULAR HGB CONC 30.6 g/dl (32.0-36.5); MEAN CORPUSCULAR VOLUME 90.1 fl (80.0-96.0); PLATELET COUNT, AUTOMATED 206 10^3/uL (150-450); RED BLOOD COUNT 4.67 10^6/uL (4.00-5.40); WHITE BLOOD COUNT 8.2 10^3/uL (4.0-10.0)
[2019-11-10 08:22] LABS: INR 0.95; PROTHROMBIN TIME 12.4 SECONDS (11.8-14.0)
[2019-11-10 08:49] LABS: ALBUMIN 3.5 GM/DL (3.2-5.2); ALT/SGPT 33 U/L (12-78); BILIRUBIN,DIRECT < 0.1 MG/DL (0.0-0.2); BILIRUBIN,TOTAL 0.4 MG/DL (0.2-1.0); BLOOD UREA NITROGEN 35 MG/DL (7-18); CALCIUM LEVEL 9.1 MG/DL (8.8-10.2); CARBON DIOXIDE LEVEL 27 MEQ/L (21-32); CHLORIDE LEVEL 104 MEQ/L (98-107); CHOLESTEROL LEVEL 182 MG/DL (<200); CHOLESTEROL RISK RATIO 5.687 (<5); CREATININE FOR GFR 1.15 MG/DL (0.55-1.30); GLOMERULAR FILTRATION RATE 48.8 (>39); GLUCOSE, FASTING 156 MG/DL (70-100); HDL CHOLESTEROL 32 MG/DL (>40); NON-HDL-C 150 MG/DL; POTASSIUM SERUM 4.4 MEQ/L (3.5-5.1); SODIUM LEVEL 141 MEQ/L (136-145); TOTAL PROTEIN 6.5 GM/DL (6.4-8.2); TRIGLYCERIDES LEVEL 543 MG/DL (<150)
[2019-11-10 12:19] LABS: APPEARANCE, URINE HAZY (CLEAR); BACTERIA, URINE AUTO 3+ (NEGATIVE); BILIRUBIN, URINE AUTO NEGATIVE (NEGATIVE); BLOOD, URINE BLOOD NEGATIVE (NEGATIVE); COLOR, URINE YELLOW (YELLOW); GLUCOSE, URINE (UA) AUTO NEGATIVE (NEGATIVE); KETONE, URINE AUTO NEGATIVE (NEGATIVE); LEUKOCYTE ESTERASE, URINE AUTO 2+ (NEGATIVE); MUCUS, URINE SMALL (NEGATIVE); NITRITE, URINE AUTO NEGATIVE (NEGATIVE); PROTEIN, URINE AUTO 1+ mg/dL (NEGATIVE); RBC, URINE AUTO 4 /HPF (0-3); SPECIFIC GRAVITY URINE AUTO 1.013 (1.002-1.035); SQUAMOUS EPITHELIAL CELL UR AU 0 /HPF (0-6); UROBILINOGEN, URINE AUTO 0.2 mg/dL (0.0-2.0); WBC, URINE AUTO 130 /HPF (0-3)
== END ==
PROVIDERS: ATTEND Internal Medicine
DX: E78.5 Hyperlipidemia, unspecified (principal); E11.9 Type 2 diabetes mellitus without complications; Z79.899 Other long term (current) drug therapy

== ENCOUNTER → 2019-11-13 | Outpatient (REF) | payer MEDICARE, MEDICAID ==
[2019-11-13 16:03] LABS: CREATININE, URINE 21.3 MG/DL; MAU/CREAT RATIO 633.8 MCG/MG (0.0-30.0)
== END ==
PROVIDERS: ATTEND Family Medicine
DX: R39.89 Other symptoms and signs involving the genitourinary system (principal)

== ENCOUNTER → 2019-11-30 | Outpatient (CLI) | payer MEDICARE, MEDICAID ==
--- NOTE | 2019-11-30 14:01 | REP ---
BILATERAL SCREENING DIGITAL MAMMOGRAM WITHOUT 3D TOMOSYNTHESIS: There are no palpable abnormalities or other breast complaints. The the patient states she has not had a clinical breast examination in over a year. The the patient states she performs self-breast examinations two times per year. The Tyrer-zi Lifetime Breast Cancer Risk Score is: 2.9% . Comparison is 11/18/2018. There are no other prior studies. This prior study is the patient's baseline examination. The study is technically difficult to perform as the the patient is in a wheelchair There are scattered areas of fibroglandular density. There is no dominant mass, micro calcific cluster or architectural distortion that would indicate malignancy. There is no change from the prior study. Impression: BIRADS/ACR category 1 mammogram. Negative. Recommendation: Routine annual screening mammography. This mammogram was interpreted with the aid of a FDA approved computer-aided detection system. A. Negative mammogram reports should not delay biopsy if a dominant or clinically suspicious mass is present. B. Not all breast cancers are identified by mammography or tomosynthesis. C. Adenosis and dense breasts may obscure an underlying neoplasm. Patient letter M1. Electronically Signed by Phoenix Pinto MD 11/30/2019 01:52 P
== END ==
LOC: M WHC 10:55
PROVIDERS: ATTEND Internal Medicine
DX: Z12.31 Encounter for screening mammogram for malignant neoplasm of breast (principal); Z99.3 Dependence on wheelchair

== ENCOUNTER → 2019-12-07 | Outpatient (REF) | payer MEDICARE, MEDICAID ==
--- NOTE | 2019-12-07 09:16 | REP ---
Clinical: Jaw pain. Technique: Four views of the mandible. Findings: Mandible including bilateral temporomandibular joints appear intact and normal. Overlying soft tissues are unremarkable. Impression: Normal appearance of the mandible. Electronically Signed by Vishnu Blue MD 12/07/2019 09:08 A
== END ==
PROVIDERS: ATTEND Internal Medicine
DX: R68.84 Jaw pain (principal)

== ENCOUNTER → 2019-12-15 | Outpatient (REF) | payer MEDICARE, MEDICAID ==
--- NOTE | 2019-12-15 08:44 | REPPI ---
Clinical: Urinary retention. Technique: Two supine views of the abdomen and pelvis. Findings: Evaluation is markedly limited due to technique, underpenetration and overlying bowel gas. Mild/moderate fecal stasis cannot be excluded. Evidence for prior cholecystectomy. No obvious urinary tract calcifications are identified. Phleboliths noted in the pelvis. Skeletal structures demonstrate age-related degenerative changes. Impression: Limited examination. No obvious urinary tract calcifications noted. Electronically Signed by Vishnu Blue MD 12/15/2019 08:35 A
== END ==
PROVIDERS: ATTEND Internal Medicine
DX: R33.9 Retention of urine, unspecified (principal)

== ENCOUNTER → 2020-02-07 | Outpatient (REF) | payer MEDICARE, MEDICAID ==
[~2020-02-07] MED LIST changes: +ACET325T43 PO; -MAPA325T4 PO
[2020-02-07 13:11] LABS: HEMOGLOBIN A1c 6.5 %
== END ==
PROVIDERS: ATTEND Internal Medicine
DX: E11.9 Type 2 diabetes mellitus without complications (principal)

== ENCOUNTER → 2020-03-12 | Outpatient (REF) ==
[~2020-03-12] MED LIST changes: +GABA-282 PO; -GABA-843 PO; -LISI-1046 PO; +LISI2.5T2 PO; +MIRA1.5T PO; -MIRA1.5T4 PO
== END ==
PROVIDERS: ATTEND Internal Medicine
DX: Z03.818 Encounter for observation for suspected exposure to other biological agents ruled out (principal)

== ENCOUNTER → 2020-03-15 | Outpatient (REF) | payer MEDICARE, MEDICAID ==
[~2020-03-15] MED LIST changes: -GABA-282 PO; +GABA-843 PO; -MIRA1.5T PO; +MIRA1.5T4 PO
[2020-03-15 13:21] LABS: BLOOD UREA NITROGEN 44 MG/DL (7-18); CARBON DIOXIDE LEVEL 24 MEQ/L (21-32); CHLORIDE LEVEL 107 MEQ/L (98-107); CREATININE FOR GFR 0.95 MG/DL (0.55-1.30); GLOMERULAR FILTRATION RATE > 60.0 (>39); GLUCOSE, FASTING 148 MG/DL (70-100); POTASSIUM SERUM 4.2 MEQ/L (3.5-5.1); SODIUM LEVEL 140 MEQ/L (136-145)
== END ==
PROVIDERS: ATTEND Internal Medicine
DX: N18.3 Chronic kidney disease, stage 3 (moderate) (principal)

== ENCOUNTER → 2020-05-08 | Outpatient (REF) | payer MEDICARE, MEDICAID ==
[2020-05-08 12:04] LABS: HEMATOCRIT 37.5 % (36.0-47.0); HEMOGLOBIN 11.9 g/dl (12.0-15.5); MEAN CORPUSCULAR HEMOGLOBIN 28.5 pg (27.0-33.0); MEAN CORPUSCULAR HGB CONC 31.7 g/dl (32.0-36.5); MEAN CORPUSCULAR VOLUME 89.9 fl (80.0-96.0); PLATELET COUNT, AUTOMATED 237 10^3/uL (150-450); RED BLOOD COUNT 4.17 10^6/uL (4.00-5.40)
[2020-05-08 12:35] LABS: HEMOGLOBIN A1c 6.3 %
[2020-05-08 12:49] LABS: ALBUMIN 3.3 GM/DL (3.2-5.2); ALT/SGPT 31 U/L (12-78); BILIRUBIN,DIRECT < 0.1 MG/DL (0.0-0.2); BILIRUBIN,TOTAL 0.4 MG/DL (0.2-1.0); BLOOD UREA NITROGEN 45 MG/DL (7-18); CALCIUM LEVEL 8.8 MG/DL (8.8-10.2); CARBON DIOXIDE LEVEL 26 MEQ/L (21-32); CHLORIDE LEVEL 104 MEQ/L (98-107); CHOLESTEROL LEVEL 169 MG/DL (<200); CHOLESTEROL RISK RATIO 5.121 (<5); CREATININE FOR GFR 1.09 MG/DL (0.55-1.30); GLUCOSE, FASTING 131 MG/DL (70-100); HDL CHOLESTEROL 33 MG/DL (>40); NON-HDL-C 136 MG/DL; POTASSIUM SERUM 4.1 MEQ/L (3.5-5.1); SODIUM LEVEL 142 MEQ/L (136-145); TOTAL PROTEIN 6.5 GM/DL (6.4-8.2); TRIGLYCERIDES LEVEL 501 MG/DL (<150)
== END ==
PROVIDERS: ATTEND Nurse Practitioner Adult Health
DX: E11.9 Type 2 diabetes mellitus without complications (principal); E78.5 Hyperlipidemia, unspecified

== ENCOUNTER → 2020-05-14 | Outpatient (REF) | payer MEDICARE, MEDICAID ==
[2020-05-14 19:21] LABS: CREATININE, URINE 17.7 MG/DL; MALB URINE SIEMENS 45.3 MG/L; MAU/CREAT RATIO 255.9 MCG/MG (0.0-30.0)
== END ==
PROVIDERS: ATTEND Internal Medicine
DX: E11.9 Type 2 diabetes mellitus without complications (principal)

== ENCOUNTER → 2020-06-26 | Outpatient (CLI) | payer MEDICARE, MEDICAID ==
--- NOTE | 2020-07-23 13:44 | REP ---
RENAL ULTRASOUND CLINICAL: Hydronephrosis. TECHNIQUE: Real-time saldaña scale and color Doppler evaluation using curved array transducer. COMPARISON: 06/30/2018. FINDINGS: The right kidney measures 10.6 x 5.4 x 4.7 cm excluding a 7.7 x 5.6 x 8.3 cm mid-lower pole cyst, which is essentially unchanged from prior examination. Right kidney is otherwise normal and without hydronephrosis or obvious nephrolithiasis. The left kidney is normal in contour, size, echogenicity, and reniform shape without hydronephrosis, nephrolithiasis, or cystic lesion and measures 11.3 x 5.0 x 4.2 cm. The bladder is normal in appearance without wall thickening or mass lesion and bilateral ureteral jets are identified. IMPRESSION: * Relatively stable right renal cyst as compared to 06/30/2018. * There is no evidence for hydronephrosis bilaterally. MTDD
== END ==
LOC: M RAD 08:16
PROVIDERS: ATTEND Nurse Practitioner
DX: N28.1 Cyst of kidney, acquired (principal)

== ENCOUNTER → 2020-08-01 | Outpatient (CLI) | payer MEDICARE, MEDICAID ==
--- NOTE | 2020-08-06 07:34 | REP ---
RENAL ULTRASOUND: 08/01/20 HISTORY: Neurogenic bladder. Real time sonographic evaluation of the kidneys performed. The kidneys are normal in size and echotexture, the right kidney measures 12.7 x 6.6 x 5.0cm and the left kidney 11.2 x 4.3 x 4.9cm. There is very mild right hydronephrosis. There is no left hydronephrosis. Proximal right ureter is mildly dilated. Complex cyst is again seen in the lower pole of the right kidney containing a few internal septations measuring 8.2 x 6.1 x 8.5cm. The study is somewhat limited due to patient body habitus and immobility. Urinary bladder is mild to moderately distended. There are bilateral ureteral jets seen with Doppler color evaluation. IMPRESSION: Very mild right hydronephrosis. Ureteral jets are seen in the urinary bladder with Doppler evaluation. Stable complex cyst lower pole right kidney. MTDD
== END ==
LOC: M RAD 10:58
PROVIDERS: ATTEND Nurse Practitioner Adult Health
DX: N31.9 Neuromuscular dysfunction of bladder, unspecified (principal); N13.30 Unspecified hydronephrosis; N28.1 Cyst of kidney, acquired

== ENCOUNTER → 2020-08-05 | Outpatient (REF) | payer MEDICARE, MEDICAID ==
[2020-08-05 10:23] LABS: HEMOGLOBIN A1c 6.7 %
== END ==
PROVIDERS: ATTEND Internal Medicine
DX: E78.5 Hyperlipidemia, unspecified (principal); E11.9 Type 2 diabetes mellitus without complications

== ENCOUNTER → 2020-09-05 | Outpatient (REF) | PROVIDERS: ATTEND Internal Medicine | DX: Z20.828 Contact with and (suspected) exposure to other viral communicable diseases (principal) ==

== ENCOUNTER → 2020-09-12 | Outpatient (REF) | payer MEDICARE, MEDICAID ==
[~2020-09-12] MED LIST changes: +GABA-282 PO; -GABA-843 PO; +MIRA1.5T PO; -MIRA1.5T4 PO
== END ==
LOC: EDSTATUS 10-19 15:11
PROVIDERS: ATTEND Internal Medicine
DX: Z20.828 Contact with and (suspected) exposure to other viral communicable diseases (principal)

== ENCOUNTER → 2020-09-18 | Outpatient (REF) | payer MEDICARE, MEDICAID | PROVIDERS: ATTEND Internal Medicine | DX: Z20.828 Contact with and (suspected) exposure to other viral communicable diseases (principal) ==

== ENCOUNTER → 2020-10-06 | Outpatient (REF) | payer MEDICARE, MEDICAID ==
[~2020-10-06] MED LIST changes: -GABA-282 PO; +GABA-843 PO
== END ==
PROVIDERS: ATTEND Internal Medicine
DX: Z20.828 Contact with and (suspected) exposure to other viral communicable diseases (principal)

== ENCOUNTER → 2020-10-10 | Outpatient (REF) | payer MEDICARE, MEDICAID ==
[~2020-10-10] MED LIST changes: +GABA-282 PO; -GABA-843 PO
[2020-10-10 12:49] LABS: INFLUENZA A AMPLIFICATION NEGATIVE (NEGATIVE); INFLUENZA B AMPLIFICATION NEGATIVE (NEGATIVE)
== END ==
PROVIDERS: ATTEND Internal Medicine
DX: Z20.828 Contact with and (suspected) exposure to other viral communicable diseases (principal)
CPT/HCPCS: 87502; U0003

== ENCOUNTER → 2020-10-13 | Outpatient (REF) ==
[~2020-10-13] MED LIST changes: -GABA-282 PO; +GABA-843 PO
== END ==
PROVIDERS: ATTEND Nurse Practitioner Adult Health
DX: Z20.828 Contact with and (suspected) exposure to other viral communicable diseases (principal)

== ENCOUNTER → 2020-10-14 | Outpatient (REF) | payer MEDICARE, MEDICAID ==
[~2020-10-14] MED LIST changes: +GABA-282 PO; -GABA-843 PO
== END ==
PROVIDERS: ATTEND Internal Medicine
DX: Z20.828 Contact with and (suspected) exposure to other viral communicable diseases (principal)

== ENCOUNTER → 2020-10-16 | Outpatient (REF) | payer MEDICARE, MEDICAID ==
[~2020-10-16] MED LIST changes: -GABA-282 PO; +GABA-843 PO
== END ==
PROVIDERS: ATTEND Internal Medicine
DX: Z20.828 Contact with and (suspected) exposure to other viral communicable diseases (principal)

== ENCOUNTER → 2020-10-19 | Outpatient (REF) | payer MEDICARE, MEDICAID ==
[2020-10-19 10:46] LABS: HEMATOCRIT 36.4 % (36.0-47.0); HEMOGLOBIN 11.1 g/dl (12.0-15.5); MEAN CORPUSCULAR HEMOGLOBIN 27.1 pg (27.0-33.0); MEAN CORPUSCULAR HGB CONC 30.5 g/dl (32.0-36.5); PLATELET COUNT, AUTOMATED 201 10^3/uL (150-450); RED BLOOD COUNT 4.09 10^6/uL (4.00-5.40); WHITE BLOOD COUNT 3.9 10^3/uL (4.0-10.0)
[2020-10-19 10:50] LABS: CALCIUM LEVEL 8.3 MG/DL (8.8-10.2); CREATININE FOR GFR 1.73 MG/DL (0.55-1.30); GLOMERULAR FILTRATION RATE 30.4 (>39); POTASSIUM SERUM 3.9 MEQ/L (3.5-5.1)
== END ==
LOC: M LAB 10:21
PROVIDERS: ATTEND Internal Medicine
DX: E78.5 Hyperlipidemia, unspecified (principal)

== ENCOUNTER → 2020-10-22 | Outpatient (REF) | payer MEDICARE, MEDICAID ==
[2020-10-22 10:48] LABS: CREATININE FOR GFR 1.19 MG/DL (0.55-1.30); GLOMERULAR FILTRATION RATE 46.8 (>39); POTASSIUM SERUM 4.9 MEQ/L (3.5-5.1)
== END ==
PROVIDERS: ATTEND Internal Medicine
DX: Z20.828 Contact with and (suspected) exposure to other viral communicable diseases (principal)

== ENCOUNTER → 2020-11-07 | Outpatient (REF) | payer MEDICARE, MEDICAID ==
[~2020-11-07] MED LIST changes: +GABA-282 PO; -GABA-843 PO
[2020-11-07 15:01] LABS: HEMATOCRIT 37.7 % (36.0-47.0); HEMOGLOBIN 11.9 g/dl (12.0-15.5); MEAN CORPUSCULAR HEMOGLOBIN 27.7 pg (27.0-33.0); MEAN CORPUSCULAR HGB CONC 31.6 g/dl (32.0-36.5); MEAN CORPUSCULAR VOLUME 87.7 fl (80.0-96.0); PLATELET COUNT, AUTOMATED 221 10^3/uL (150-450); WHITE BLOOD COUNT 6.4 10^3/uL (4.0-10.0)
[2020-11-07 15:25] LABS: ALBUMIN 3.4 GM/DL (3.2-5.2); ALT/SGPT 40 U/L (12-78); BILIRUBIN,DIRECT < 0.1 MG/DL (0.0-0.2); BILIRUBIN,TOTAL 0.5 MG/DL (0.2-1.0); BLOOD UREA NITROGEN 47 MG/DL (7-18); CALCIUM LEVEL 9.3 MG/DL (8.8-10.2); CARBON DIOXIDE LEVEL 23 MEQ/L (21-32); CHLORIDE LEVEL 106 MEQ/L (98-107); CHOLESTEROL LEVEL 246 MG/DL (<200); CHOLESTEROL RISK RATIO 7.687 (<5); CREATININE FOR GFR 0.96 MG/DL (0.55-1.30); GLUCOSE, FASTING 131 MG/DL (70-100); HDL CHOLESTEROL 32 MG/DL (>40); NON-HDL-C 214 MG/DL; POTASSIUM SERUM 4.7 MEQ/L (3.5-5.1); SODIUM LEVEL 136 MEQ/L (136-145); TOTAL PROTEIN 6.3 GM/DL (6.4-8.2); TRIGLYCERIDES LEVEL 1377 MG/DL (<150)
[2020-11-07 15:49] LABS: HEMOGLOBIN A1c 7.1 %
== END ==
PROVIDERS: ATTEND Internal Medicine
DX: E03.9 Hypothyroidism, unspecified (principal); I10 Essential (primary) hypertension; Z79.899 Other long term (current) drug therapy

== ENCOUNTER → 2020-11-13 | Outpatient (REF) | payer MEDICARE, MEDICAID | PROVIDERS: ATTEND Internal Medicine | DX: Z53.9 Procedure and treatment not carried out, unspecified reason (principal) ==

== ENCOUNTER → 2020-12-17 | Outpatient (REF) | payer MEDICARE, MEDICAID ==
--- NOTE | 2020-12-17 15:34 | REPPI ---
INDICATION: URINARY RETENTION AND RENAL CALCULI ROOM 120-2. COMPARISON: 12/15/2019 clinical history: Urinary retention, history of renal calculi. Annual exam. TECHNIQUE: Supine abdomen. Four images were used to encompass the entirety of the abdomen and pelvis. FINDINGS: There are pelvic phleboliths on the left side as before. Right upper quadrant surgical clips from prior cholecystectomy noted I do not see any compelling evidence for nephrolithiasis or stones along the expected course of the ureter moderate stool in the rectosigmoid colon and scattered stool the remainder of the colon. No dilated colon or small bowel loops. Degenerative changes are seen in the spine and hips as well as the SI joints. IMPRESSION: 1. No definite renal, ureteral or bladder calculi, limited examination due to body habitus considerations. 2. Prior cholecystectomy. Moderate stool in the rectosigmoid but no gross distention of the remainder of the colon or dilated loops. No obstruction. 3. Degenerative changes spine SI joints and hips. <Electronically signed by Zenon Willard > 12/17/20 [id number]
== END ==
PROVIDERS: ATTEND Internal Medicine
DX: R33.9 Retention of urine, unspecified (principal); N20.0 Calculus of kidney; Z90.49 Acquired absence of other specified parts of digestive tract

== ENCOUNTER → 2020-12-17 | Outpatient (REF) | payer MEDICARE, MEDICAID ==
[2020-12-17 12:20] LABS: CHOLESTEROL RISK RATIO 4.261 (<5)
[2020-12-17 12:30] LABS: ALBUMIN 3.6 GM/DL (3.2-5.2); ALT/SGPT 30 U/L (12-78); BILIRUBIN,DIRECT < 0.1 MG/DL (0.0-0.2); BILIRUBIN,TOTAL 0.3 MG/DL (0.2-1.0); TOTAL PROTEIN 6.6 GM/DL (6.4-8.2)
== END ==
PROVIDERS: ATTEND Internal Medicine
DX: E78.1 Pure hyperglyceridemia (principal); R33.9 Retention of urine, unspecified; N20.0 Calculus of kidney; Z90.49 Acquired absence of other specified parts of digestive tract

== ENCOUNTER → 2020-12-23 | Outpatient (REF) | payer MEDICARE, MEDICAID ==
[2020-12-23 22:43] LABS: CREATININE, URINE 36.7 MG/DL; MALB URINE SIEMENS 20.1 MG/L; MAU/CREAT RATIO 54.7 MCG/MG (0.0-30.0)
== END ==
PROVIDERS: ATTEND Internal Medicine
DX: E11.9 Type 2 diabetes mellitus without complications (principal)

== ENCOUNTER → 2020-12-27 | Outpatient (CLI) | payer MEDICARE, MEDICAID ==
--- NOTE | 2020-12-27 14:27 | REPMRS ---
Patient History The patient states she has not had a clinical breast exam in over a year. Family history of unknown cancer in mother. Took unspecified hormones for 1 year. The Mary Patel lifetime risk for breast cancer is 2.7%. Volpara breast density b. Digital Woman Screen Mammo: December 27, 2020 - Exam #: [id number] Bilateral CC and MLO view(s) were taken. Technologist: Violetta Royal RT Prior study comparison: November 30, 2019, bilateral digital woman screen mammo performed at [facility] [place]. November 18, 2018, digital mammo diagnostic bilateral, performed at [facility]. FINDINGS: There are scattered fibroglandular densities. There has been no change in the appearance of the mammogram from the prior studies. There is a mild amount of residual fibroglandular tissue which is fairly symmetric. There is no interval development of dominant mass, architectural distortion, or clustered microcalcification suggestive of malignancy. Assessment: BI-RADS/ACR category 1 mammogram. Negative Mammogram. Recommendation Routine screening mammogram in 1 year (for women over age 40). This mammogram was interpreted with the aid of an FDA-approved computer-aided dectection system. Electronically Signed By: Phoenix Holman MD 12/27/20 0362
== END ==
LOC: M WHC 12:42
PROVIDERS: ATTEND Internal Medicine
DX: Z12.31 Encounter for screening mammogram for malignant neoplasm of breast (principal); Z80.9 Family history of malignant neoplasm, unspecified

== ENCOUNTER → 2021-01-21 | Outpatient (REF) | payer MEDICARE, MEDICAID ==
[2021-01-21 10:16] LABS: BASO # 0.1 10^3/uL (0.0-0.2); BASO % 0.9 % (0.0-1.0); EOS # 0.7 10^3/uL (0.0-0.5); EOS % 7.7 % (0.0-3.0); HEMATOCRIT 33.9 % (36.0-47.0); HEMOGLOBIN 10.9 g/dl (12.0-15.5); LYMPH % 22.7 % (24.0-44.0); MEAN CORPUSCULAR HEMOGLOBIN 29.1 pg (27.0-33.0); MEAN CORPUSCULAR HGB CONC 32.2 g/dl (32.0-36.5); MEAN CORPUSCULAR VOLUME 90.4 fl (80.0-96.0); MONO # 0.5 10^3/uL (0.0-0.8); MONO % 5.6 % (2.0-8.0); NEUTROPHILS # 5.3 10^3/uL (1.5-8.5); NEUTROPHILS % 62.1 % (36.0-66.0); PLATELET COUNT, AUTOMATED 287 10^3/uL (150-450); RED BLOOD COUNT 3.75 10^6/uL (4.00-5.40); WHITE BLOOD COUNT 8.6 10^3/uL (4.0-10.0)
[2021-01-21 10:45] LABS: ALBUMIN 3.3 GM/DL (3.2-5.2); BILIRUBIN,TOTAL 0.3 MG/DL (0.2-1.0); CALCIUM LEVEL 8.9 MG/DL (8.8-10.2); CREATININE FOR GFR 1.96 MG/DL (0.55-1.30); GLOMERULAR FILTRATION RATE 26.3 (>39); POTASSIUM SERUM 4.6 MEQ/L (3.5-5.1); TOTAL PROTEIN 6.2 GM/DL (6.4-8.2)
[2021-01-21 14:54] LABS: CLOSTRIDIUM DIFFICILE PCR NEGATIVE (NEGATIVE)
[2021-01-21 18:58] LABS: APPEARANCE, URINE CLOUDY (CLEAR); BACTERIA, URINE AUTO 2+ (NEGATIVE); BILIRUBIN, URINE AUTO NEGATIVE (NEGATIVE); BLOOD, URINE BLOOD 1+ (NEGATIVE); COLOR, URINE YELLOW (YELLOW); GLUCOSE, URINE (UA) AUTO NEGATIVE (NEGATIVE); KETONE, URINE AUTO NEGATIVE (NEGATIVE); LEUKOCYTE ESTERASE, URINE AUTO 3+ (NEGATIVE); MUCUS, URINE SMALL (NEGATIVE); NITRITE, URINE AUTO NEGATIVE (NEGATIVE); PROTEIN, URINE AUTO NEGATIVE (NEGATIVE); RBC, URINE AUTO 0 /HPF (0-3); SQUAMOUS EPITHELIAL CELL UR AU 1 /HPF (0-6); UROBILINOGEN, URINE AUTO 0.2 mg/dL (0.0-2.0); WBC, URINE AUTO 24 /HPF (0-3)
== END ==
PROVIDERS: ATTEND Nurse Practitioner Adult Health
DX: R19.7 Diarrhea, unspecified (principal); Z79.899 Other long term (current) drug therapy

== ENCOUNTER → 2021-01-22 | Outpatient (REF) | payer MEDICARE, MEDICAID ==
[2021-01-22 10:37] LABS: CALCIUM LEVEL 8.3 MG/DL (8.8-10.2); CREATININE FOR GFR 1.83 MG/DL (0.55-1.30); GLOMERULAR FILTRATION RATE 28.5 (>39); POTASSIUM SERUM 4.1 MEQ/L (3.5-5.1)
== END ==
PROVIDERS: ATTEND Internal Medicine
DX: R19.7 Diarrhea, unspecified (principal)

== ENCOUNTER → 2021-01-22 | Outpatient (CLI) | payer MEDICARE, MEDICAID ==
[~2021-01-22] MED LIST changes: +GASTROGRAFIN SOLUTION 30ML (Q9963) As Ordered ONE
--- NOTE | 2021-01-22 10:50 | REP ---
INDICATION: DIARRHEA C DIFF COMPARISON: 08/25/2018 TECHNIQUE: Axial noncontrast images from the lung bases to the pubic symphysis with coronal and sagittal reformations. Oral contrast material administered prior to imaging. This CT examination was performed using the following dose reduction techniques: Automated exposure control, adjustment of mA and/or kv according to the patient's size, and use of iterative reconstruction technique. FINDINGS: Lung bases demonstrate chronic interstitial changes. Liver, spleen, pancreas, bilateral adrenal glands and left kidney are normal by noncontrast evaluation. Right kidney again includes 8 cm lower pole cyst. Patient is noted to be status post cholecystectomy. The enteric system is unremarkable and without obstruction or acute inflammatory process. Normal terminal ileum and appendix identified in the right lower quadrant. Pelvis demonstrates normal bladder and evidence for prior hysterectomy. No ascites. No free air. No adenopathy. No focal inflammatory stranding. Abdominal aorta without aneurysm. Musculoskeletal structures are intact and without acute osseous abnormality. IMPRESSION: No acute abdominopelvic pathology appreciated. The enteric system is unremarkable and without acute process. Known right renal cyst. <Electronically signed by Vishnu Blue > 01/22/21 [id number]
== END ==
LOC: M RAD 08:19
PROVIDERS: ATTEND Nurse Practitioner Adult Health
DX: N28.1 Cyst of kidney, acquired (principal); R19.7 Diarrhea, unspecified
CPT/HCPCS: 36415; 74176; 80048; Q9963

== ENCOUNTER → 2021-01-23 | Outpatient (REF) | payer MEDICARE, MEDICAID ==
[~2021-01-23] MED LIST changes: -GASTROGRAFIN SOLUTION 30ML (Q9963) As Ordered ONE
[2021-01-23 11:02] LABS: CREATININE FOR GFR 1.29 MG/DL (0.55-1.30); GLOMERULAR FILTRATION RATE 42.7 (>39); POTASSIUM SERUM 3.8 MEQ/L (3.5-5.1)
== END ==
PROVIDERS: ATTEND Internal Medicine
DX: N18.9 Chronic kidney disease, unspecified (principal)

== ENCOUNTER → 2021-01-24 | Outpatient (REF) | payer MEDICARE, MEDICAID ==
[2021-01-24 12:36] LABS: CALCIUM LEVEL 8.3 MG/DL (8.8-10.2); CREATININE FOR GFR 0.98 MG/DL (0.55-1.30); GLOMERULAR FILTRATION RATE 58.6 (>39); POTASSIUM SERUM 3.6 MEQ/L (3.5-5.1)
== END ==
PROVIDERS: ATTEND Internal Medicine
DX: N39.0 Urinary tract infection, site not specified (principal)

== ENCOUNTER → 2021-01-31 | Outpatient (REF) | payer MEDICARE, MEDICAID ==
[2021-01-31 19:38] LABS: RSV AMPLIFICATION NEGATIVE (NEGATIVE)
== END ==
PROVIDERS: ATTEND Internal Medicine
DX: Z11.52 Encounter for screening for COVID-19 (principal)

== ENCOUNTER → 2021-02-04 | Outpatient (REF) | payer MEDICARE, MEDICAID ==
[2021-02-04 12:00] LABS: HEMOGLOBIN A1c 6.6 %
== END ==
PROVIDERS: ATTEND Internal Medicine
DX: E11.9 Type 2 diabetes mellitus without complications (principal)

== ENCOUNTER 2021-05-03 08:44 | Emergency (ER) | payer MEDICARE, MEDICAID ==
[~2021-05-03] VITALS: Ht 162.6 cm; Wt 109.1 kg
[~2021-05-03 08:44] MED LIST changes: +GABA-283 PO; -GABA-845 PO; -LISI2.5T2 PO; +LISI2.5T9 PO; +OMEP40CA4 PO; -OMEP40CA97 PO
[2021-05-03] MEDS ORDERED: BOOSTRIX/ADACEL VACCINE (DIPHTH/PERTUSS/ACELL/TETANUS) 0.5ML SYR IM ONE (09:00)
[2021-05-03] MEDS ORDERED: LIDOCAINE 2% MDV 20ML VIAL SC ONE (09:00)
[2021-05-03] MEDS ORDERED: BACITRACIN OINTMENT 30GM TUBE TOP PRN (09:55)
[2021-05-03 10:32] VITALS: BP 150/70
== END 2021-05-03 10:34 | disposition home or self-care (01) ==
LOC: EDBD 08:44 → M ED 08:44
DX: S61.411A Laceration without foreign body of right hand, initial encounter (principal); W05.0XXA Fall from non-moving wheelchair, initial encounter; Y92.128 Other place in nursing home as the place of occurrence of the external cause; E11.9 Type 2 diabetes mellitus without complications; I50.9 Heart failure, unspecified; N18.30 Chronic kidney disease, stage 3 unspecified; E78.9 Disorder of lipoprotein metabolism, unspecified; D50.9 Iron deficiency anemia, unspecified; G11.4 Hereditary spastic paraplegia; J84.10 Pulmonary fibrosis, unspecified; Z79.899 Other long term (current) drug therapy; Z79.4 Long term (current) use of insulin; Z88.8 Allergy status to other drugs, medicaments and biological substances; Z91.040 Latex allergy status

== ENCOUNTER → 2021-05-05 | Outpatient (REF) | payer MEDICARE, MEDICAID ==
[2021-05-05 10:44] LABS: HEMATOCRIT 38.4 % (36.0-47.0); HEMOGLOBIN 12.5 g/dl (12.0-15.5); MEAN CORPUSCULAR HGB CONC 32.6 g/dl (32.0-36.5); MEAN CORPUSCULAR VOLUME 89.1 fl (80.0-96.0); PLATELET COUNT, AUTOMATED 285 10^3/uL (150-450); RED BLOOD COUNT 4.31 10^6/uL (4.00-5.40); WHITE BLOOD COUNT 8.5 10^3/uL (4.0-10.0)
[2021-05-05 11:17] LABS: HEMOGLOBIN A1c 7.7 %
[2021-05-05 11:19] LABS: ALBUMIN 3.6 GM/DL (3.2-5.2); ALT/SGPT 27 U/L (12-78); BILIRUBIN,DIRECT < 0.1 MG/DL (0.0-0.2); BILIRUBIN,TOTAL 0.3 MG/DL (0.2-1.0); BLOOD UREA NITROGEN 35 MG/DL (7-18); CALCIUM LEVEL 9.8 MG/DL (8.8-10.2); CARBON DIOXIDE LEVEL 19 MEQ/L (21-32); CHLORIDE LEVEL 106 MEQ/L (98-107); CHOLESTEROL LEVEL 165 MG/DL (<200); CREATININE FOR GFR 1.06 MG/DL (0.55-1.30); GLOMERULAR FILTRATION RATE 53.5 (>39); GLUCOSE, FASTING 164 MG/DL (70-100); HDL CHOLESTEROL 44 MG/DL (>40); LDL CHOLESTEROL 70 MG/DL (<100); NON-HDL-C 121 MG/DL; POTASSIUM SERUM 5.1 MEQ/L (3.5-5.1); SODIUM LEVEL 136 MEQ/L (136-145); TOTAL PROTEIN 6.6 GM/DL (6.4-8.2); TRIGLYCERIDES LEVEL 255 MG/DL (<150)
== END ==
PROVIDERS: ATTEND Internal Medicine
DX: E78.5 Hyperlipidemia, unspecified (principal); Z79.899 Other long term (current) drug therapy

== ENCOUNTER → 2021-05-09 | Outpatient (REF) | payer MEDICARE, MEDICAID | PROVIDERS: ATTEND Internal Medicine | DX: S92.353A Displaced fracture of fifth metatarsal bone, unspecified foot, initial encounter for closed fracture (principal); M81.0 Age-related osteoporosis without current pathological fracture; M79.9 Soft tissue disorder, unspecified ==

== ENCOUNTER → 2021-07-30 | Outpatient (REF) | payer MEDICARE, MEDICAID ==
[2021-07-30 18:07] LABS: HEMOGLOBIN A1c 7.6 %
== END ==
PROVIDERS: ATTEND Nurse Practitioner Adult Health
DX: E11.9 Type 2 diabetes mellitus without complications (principal)

== ENCOUNTER → 2021-10-29 | Outpatient (REF) | payer MEDICARE, MEDICAID ==
[2021-10-29 11:48] LABS: HEMATOCRIT 37.5 % (36.0-47.0); HEMOGLOBIN 12.3 g/dl (12.0-15.5); MEAN CORPUSCULAR HEMOGLOBIN 29.3 pg (27.0-33.0); MEAN CORPUSCULAR HGB CONC 32.8 g/dl (32.0-36.5); MEAN CORPUSCULAR VOLUME 89.3 fl (80.0-96.0); PLATELET COUNT, AUTOMATED 312 10^3/uL (150-450)
[2021-10-29 12:50] LABS: ALBUMIN 3.6 GM/DL (3.2-5.2); BILIRUBIN,DIRECT 0.1 MG/DL (0.0-0.2); BILIRUBIN,TOTAL 0.2 MG/DL (0.2-1.0); CALCIUM LEVEL 9.5 MG/DL (8.8-10.2); CHOLESTEROL RISK RATIO 4.071 (<5); CREATININE FOR GFR 0.96 MG/DL (0.55-1.30); GLOMERULAR FILTRATION RATE 59.8 (>39); POTASSIUM SERUM 4.8 MEQ/L (3.5-5.1); THYROID STIMULATING HORMONE 2.1 uIU/ML (0.358-3.740); TOTAL PROTEIN 6.7 GM/DL (6.4-8.2)
[2021-10-29 18:51] LABS: HEMOGLOBIN A1c 7.5 %
== END ==
PROVIDERS: ATTEND Internal Medicine
DX: E11.9 Type 2 diabetes mellitus without complications (principal)

== ENCOUNTER → 2021-11-24 | Outpatient (REF) | payer MEDICARE, MEDICAID ==
[2021-11-24 18:38] LABS: CREATININE, URINE 23.7 MG/DL
== END ==
PROVIDERS: ATTEND Nurse Practitioner Primary Care
DX: N31.9 Neuromuscular dysfunction of bladder, unspecified (principal)

== ENCOUNTER → 2022-01-26 | Outpatient (REF) | payer MEDICARE, MEDICAID ==
[2022-01-26 13:17] LABS: HEMOGLOBIN A1c 7.1 %
== END ==
PROVIDERS: ATTEND Internal Medicine
DX: E11.9 Type 2 diabetes mellitus without complications (principal)

== ENCOUNTER → 2022-03-09 | Outpatient (REF) | payer MEDICARE, MEDICAID ==
[2022-03-09 14:00] LABS: HEMATOCRIT 35.4 % (36.0-47.0); HEMOGLOBIN 11.5 g/dl (12.0-15.5); MEAN CORPUSCULAR HEMOGLOBIN 28.7 pg (27.0-33.0); MEAN CORPUSCULAR HGB CONC 32.5 g/dl (32.0-36.5); MEAN CORPUSCULAR VOLUME 88.3 fl (80.0-96.0); PLATELET COUNT, AUTOMATED 290 10^3/uL (150-450); RED BLOOD COUNT 4.01 10^6/uL (4.00-5.40); WHITE BLOOD COUNT 5.4 10^3/uL (4.0-10.0)
[2022-03-09 14:22] LABS: ALBUMIN 3.2 GM/DL (3.2-5.2); ALT/SGPT 24 U/L (12-78); BILIRUBIN,TOTAL 0.4 MG/DL (0.2-1.0); BLOOD UREA NITROGEN 33 MG/DL (7-18); CALCIUM LEVEL 9.2 MG/DL (8.8-10.2); CARBON DIOXIDE LEVEL 25 MEQ/L (21-32); CHLORIDE LEVEL 107 MEQ/L (98-107); CREATININE FOR GFR 0.83 MG/DL (0.55-1.30); GLOMERULAR FILTRATION RATE > 60.0 (>39); GLUCOSE, FASTING 90 MG/DL (70-100); POTASSIUM SERUM 4.7 MEQ/L (3.5-5.1); SODIUM LEVEL 139 MEQ/L (136-145)
== END ==
PROVIDERS: ATTEND Nurse Practitioner Family
DX: U07.1 COVID-19 (principal); Z79.899 Other long term (current) drug therapy

== ENCOUNTER → 2022-03-11 | Outpatient (REF) | payer MEDICARE, MEDICAID ==
[2022-03-11 12:36] LABS: HEMATOCRIT 37.1 % (36.0-47.0); MEAN CORPUSCULAR HEMOGLOBIN 28.5 pg (27.0-33.0); MEAN CORPUSCULAR HGB CONC 32.3 g/dl (32.0-36.5); MEAN CORPUSCULAR VOLUME 88.1 fl (80.0-96.0); PLATELET COUNT, AUTOMATED 285 10^3/uL (150-450); RED BLOOD COUNT 4.21 10^6/uL (4.00-5.40); WHITE BLOOD COUNT 7.2 10^3/uL (4.0-10.0)
[2022-03-11 13:08] LABS: ALBUMIN 3.4 GM/DL (3.2-5.2); ALT/SGPT 23 U/L (12-78); BILIRUBIN,TOTAL 0.3 MG/DL (0.2-1.0); BLOOD UREA NITROGEN 32 MG/DL (7-18); CALCIUM LEVEL 9.3 MG/DL (8.8-10.2); CARBON DIOXIDE LEVEL 25 MEQ/L (21-32); CHLORIDE LEVEL 107 MEQ/L (98-107); CREATININE FOR GFR 0.94 MG/DL (0.55-1.30); GLOMERULAR FILTRATION RATE > 60.0 (>39); GLUCOSE, FASTING 106 MG/DL (70-100); POTASSIUM SERUM 4.5 MEQ/L (3.5-5.1); SODIUM LEVEL 139 MEQ/L (136-145); TOTAL PROTEIN 6.3 GM/DL (6.4-8.2)
== END ==
PROVIDERS: ATTEND Nurse Practitioner Family
DX: U07.1 COVID-19 (principal); Z79.899 Other long term (current) drug therapy

== ENCOUNTER → 2022-03-16 | Outpatient (REF) | payer MEDICARE, MEDICAID ==
[2022-03-16 12:03] LABS: HEMATOCRIT 37.3 % (36.0-47.0); HEMOGLOBIN 11.8 g/dl (12.0-15.5); MEAN CORPUSCULAR HEMOGLOBIN 28.6 pg (27.0-33.0); MEAN CORPUSCULAR HGB CONC 31.6 g/dl (32.0-36.5); MEAN CORPUSCULAR VOLUME 90.3 fl (80.0-96.0); PLATELET COUNT, AUTOMATED 289 10^3/uL (150-450); RED BLOOD COUNT 4.13 10^6/uL (4.00-5.40); WHITE BLOOD COUNT 7.2 10^3/uL (4.0-10.0)
[2022-03-16 12:34] LABS: ALBUMIN 3.1 GM/DL (3.2-5.2); BILIRUBIN,TOTAL 0.2 MG/DL (0.2-1.0); CALCIUM LEVEL 9.3 MG/DL (8.8-10.2); CREATININE FOR GFR 1.07 MG/DL (0.55-1.30); GLOMERULAR FILTRATION RATE 52.8 (>39); TOTAL PROTEIN 6.4 GM/DL (6.4-8.2)
== END ==
PROVIDERS: ATTEND Nurse Practitioner Family
DX: U07.1 COVID-19 (principal); Z79.899 Other long term (current) drug therapy

== ENCOUNTER → 2022-03-18 | Outpatient (REF) | payer MEDICARE, MEDICAID ==
[2022-03-18 12:14] LABS: HEMATOCRIT 35.5 % (36.0-47.0); HEMOGLOBIN 11.1 g/dl (12.0-15.5); MEAN CORPUSCULAR HEMOGLOBIN 28.2 pg (27.0-33.0); MEAN CORPUSCULAR HGB CONC 31.3 g/dl (32.0-36.5); MEAN CORPUSCULAR VOLUME 90.1 fl (80.0-96.0); PLATELET COUNT, AUTOMATED 255 10^3/uL (150-450); RED BLOOD COUNT 3.94 10^6/uL (4.00-5.40); WHITE BLOOD COUNT 6.9 10^3/uL (4.0-10.0)
[2022-03-18 12:44] LABS: ALBUMIN 2.8 GM/DL (3.2-5.2); BILIRUBIN,TOTAL 0.3 MG/DL (0.2-1.0); CALCIUM LEVEL 8.7 MG/DL (8.8-10.2); CREATININE FOR GFR 1.11 MG/DL (0.55-1.30); GLOMERULAR FILTRATION RATE 50.6 (>39); POTASSIUM SERUM 4.1 MEQ/L (3.5-5.1)
== END ==
PROVIDERS: ATTEND Nurse Practitioner Family
DX: U07.1 COVID-19 (principal); Z79.899 Other long term (current) drug therapy

== ENCOUNTER → 2022-05-04 | Outpatient (REF) | payer MEDICARE, MEDICAID ==
[2022-05-04 14:11] LABS: CALCIUM LEVEL 9.6 MG/DL (8.8-10.2); CREATININE FOR GFR 1.06 MG/DL (0.55-1.30); GLOMERULAR FILTRATION RATE 53.4 (>39); POTASSIUM SERUM 4.4 MEQ/L (3.5-5.1)
== END ==
PROVIDERS: ATTEND Internal Medicine
DX: N18.30 Chronic kidney disease, stage 3 unspecified (principal)

== ENCOUNTER → 2022-05-11 | Outpatient (REF) | payer MEDICARE, MEDICAID ==
[2022-05-11 11:17] LABS: HEMATOCRIT 37.2 % (36.0-47.0); HEMOGLOBIN 11.9 g/dl (12.0-15.5); MEAN CORPUSCULAR HEMOGLOBIN 28.7 pg (27.0-33.0); MEAN CORPUSCULAR VOLUME 89.6 fl (80.0-96.0); PLATELET COUNT, AUTOMATED 305 10^3/uL (150-450); RED BLOOD COUNT 4.15 10^6/uL (4.00-5.40); WHITE BLOOD COUNT 8.2 10^3/uL (4.0-10.0)
[2022-05-11 11:49] LABS: HEMOGLOBIN A1c 6.9 %
[2022-05-11 12:10] LABS: ALBUMIN 3.3 GM/DL (3.2-5.2); ALT/SGPT 22 U/L (12-78); BILIRUBIN,DIRECT < 0.1 MG/DL (0.0-0.2); BILIRUBIN,TOTAL 0.2 MG/DL (0.2-1.0); BLOOD UREA NITROGEN 33 MG/DL (7-18); CALCIUM LEVEL 9.6 MG/DL (8.8-10.2); CARBON DIOXIDE LEVEL 26 MEQ/L (21-32); CHLORIDE LEVEL 107 MEQ/L (98-107); CHOLESTEROL LEVEL 149 MG/DL (<200); CHOLESTEROL RISK RATIO 3.104 (<5); CREATININE FOR GFR 0.94 MG/DL (0.55-1.30); GLOMERULAR FILTRATION RATE > 60.0 (>39); GLUCOSE, FASTING 206 MG/DL (70-100); HDL CHOLESTEROL 48 MG/DL (>40); LDL CHOLESTEROL 56 MG/DL (<100); NON-HDL-C 101 MG/DL; POTASSIUM SERUM 5.4 MEQ/L (3.5-5.1); SODIUM LEVEL 140 MEQ/L (136-145); TOTAL PROTEIN 6.5 GM/DL (6.4-8.2); TRIGLYCERIDES LEVEL 226 MG/DL (<150)
[2022-05-11 12:26] LABS: PTH INTACT 30.4 PG/ML (18.5-88.0); TOTAL 25(OH) VITAMIN D 20.9 NG/ML (30.0-100.0)
== END ==
PROVIDERS: ATTEND Internal Medicine
DX: E11.9 Type 2 diabetes mellitus without complications (principal); Z79.899 Other long term (current) drug therapy

== ENCOUNTER → 2022-05-13 | Outpatient (REF) | payer MEDICARE, MEDICAID | PROVIDERS: ATTEND Internal Medicine | DX: E87.5 Hyperkalemia (principal) ==

== ENCOUNTER → 2022-05-18 | Outpatient (REF) | payer MEDICARE, MEDICAID ==
[2022-05-18 12:28] LABS: ALBUMIN 3.5 GM/DL (3.2-5.2); CALCIUM LEVEL 9.4 MG/DL (8.8-10.2); CREATININE FOR GFR 1.08 MG/DL (0.55-1.30); GLOMERULAR FILTRATION RATE 52.2 (>39); PHOSPHORUS LEVEL 3.8 MG/DL (2.5-4.9); POTASSIUM SERUM 4.7 MEQ/L (3.5-5.1)
== END ==
PROVIDERS: ATTEND Nurse Practitioner Family
DX: N18.30 Chronic kidney disease, stage 3 unspecified (principal)

== ENCOUNTER → 2022-06-15 | Outpatient (REF) | payer MEDICARE, MEDICAID ==
[2022-06-15 12:12] LABS: BASO # 0.1 10^3/uL (0.0-0.2); EOS # 0.5 10^3/uL (0.0-0.5); EOS % 5.9 % (0.0-3.0); HEMATOCRIT 37.4 % (36.0-47.0); HEMOGLOBIN 12.3 g/dl (12.0-15.5); LYMPH # 1.6 10^3/uL (1.5-5.0); LYMPH % 20.6 % (24.0-44.0); MEAN CORPUSCULAR HEMOGLOBIN 28.9 pg (27.0-33.0); MEAN CORPUSCULAR HGB CONC 32.9 g/dl (32.0-36.5); MEAN CORPUSCULAR VOLUME 87.8 fl (80.0-96.0); MONO # 0.5 10^3/uL (0.0-0.8); MONO % 5.9 % (2.0-8.0); NEUTROPHILS # 5.1 10^3/uL (1.5-8.5); NEUTROPHILS % 65.8 % (36.0-66.0); PLATELET COUNT, AUTOMATED 282 10^3/uL (150-450); RED BLOOD COUNT 4.26 10^6/uL (4.00-5.40); WHITE BLOOD COUNT 7.7 10^3/uL (4.0-10.0)
[2022-06-15 13:00] LABS: CALCIUM LEVEL 9.4 MG/DL (8.8-10.2); CREATININE FOR GFR 1.01 MG/DL (0.55-1.30); GLOMERULAR FILTRATION RATE 56.3 (>39); POTASSIUM SERUM 4.6 MEQ/L (3.5-5.1)
== END ==
PROVIDERS: ATTEND Nurse Practitioner Family
DX: R10.9 Unspecified abdominal pain (principal)

== ENCOUNTER → 2022-08-05 | Outpatient (REF) | payer MEDICARE, MEDICAID ==
[2022-08-05 12:17] LABS: HEMOGLOBIN A1c 7.7 %
== END ==
PROVIDERS: ATTEND Internal Medicine
DX: D64.9 Anemia, unspecified (principal); Z79.899 Other long term (current) drug therapy

== ENCOUNTER → 2022-08-07 | Outpatient (REF) | payer MEDICARE, MEDICAID | PROVIDERS: ATTEND Internal Medicine | DX: R05.9 Cough, unspecified (principal); Z79.899 Other long term (current) drug therapy ==

== ENCOUNTER → 2022-09-29 | Outpatient (REF) | payer MEDICARE, MEDICAID | PROVIDERS: ATTEND Internal Medicine | DX: N39.0 Urinary tract infection, site not specified (principal) ==

== ENCOUNTER → 2022-11-02 | Outpatient (REF) | payer MEDICARE, MEDICAID ==
[2022-11-02 11:42] LABS: HEMATOCRIT 39.1 % (36.0-47.0); HEMOGLOBIN 12.3 g/dl (12.0-15.5); MEAN CORPUSCULAR HEMOGLOBIN 28.1 pg (27.0-33.0); MEAN CORPUSCULAR HGB CONC 31.5 g/dl (32.0-36.5); MEAN CORPUSCULAR VOLUME 89.3 fl (80.0-96.0); PLATELET COUNT, AUTOMATED 251 10^3/uL (150-450); RED BLOOD COUNT 4.38 10^6/uL (4.00-5.40)
[2022-11-02 11:52] LABS: HEMOGLOBIN A1c 8.6 % (4.0-6.0)
[2022-11-02 12:00] LABS: ALBUMIN 3.4 G/DL (3.2-5.2); ALKALINE PHOSPHATASE 91 U/L (46-116); ALT/SGPT 15 U/L (7.0-40); AST/SGOT 14 U/L (<34); BILIRUBIN,DIRECT < 0.1 MG/DL (<0.4); BILIRUBIN,TOTAL 0.3 MG/DL (0.3-1.2); BLOOD UREA NITROGEN 35 MG/DL (9-23); CALCIUM LEVEL 9.7 MG/DL (8.3-10.6); CARBON DIOXIDE LEVEL 27 MMOL/L (20-31); CHLORIDE LEVEL 99 MMOL/L (98-107); CHOLESTEROL LEVEL 160 MG/DL (<200); CREATININE FOR GFR 0.97 MG/DL (0.55-1.30); GLUCOSE, FASTING 252 MG/DL (74-106); HDL CHOLESTEROL 37.2 MG/DL (>40); LDL CHOLESTEROL 76.4 MG/DL (<100); NON-HDL-C 123 MG/DL; PHOSPHORUS LEVEL 4.1 MG/DL (2.4-5.1); POTASSIUM SERUM 4.6 MMOL/L (3.5-5.1); SODIUM LEVEL 136 MMOL/L (136-145); TOTAL PROTEIN 6.3 G/DL (5.7-8.2); TRIGLYCERIDES LEVEL 232 MG/DL (<150)
[2022-11-02 12:06] LABS: THYROID STIMULATING HORMONE 1.807 uIU/ML (0.55-4.78); TOTAL 25(OH) VITAMIN D 38.6 NG/ML (20.0-100.0)
[2022-11-04 10:38] LABS: PTH INTACT 37.5 PG/ML (18.5-88.0)
== END ==
PROVIDERS: ATTEND Nurse Practitioner Family
DX: E11.9 Type 2 diabetes mellitus without complications (principal); E78.5 Hyperlipidemia, unspecified; Z79.899 Other long term (current) drug therapy

== ENCOUNTER → 2022-12-24 | Outpatient (REF) | payer MEDICARE, MEDICAID ==
[2022-12-24 12:12] LABS: BASO # 0.1 10^3/uL (0.0-0.2); BASO % 0.6 % (0.0-1.0); EOS # 0.5 10^3/uL (0.0-0.5); HEMATOCRIT 38.2 % (36.0-47.0); HEMOGLOBIN 12.4 g/dl (12.0-15.5); LYMPH % 8.8 % (24.0-44.0); MEAN CORPUSCULAR HEMOGLOBIN 28.5 pg (27.0-33.0); MEAN CORPUSCULAR HGB CONC 32.5 g/dl (32.0-36.5); MEAN CORPUSCULAR VOLUME 87.8 fl (80.0-96.0); MONO # 0.5 10^3/uL (0.0-0.8); MONO % 4.1 % (2.0-8.0); NEUTROPHILS # 9.2 10^3/uL (1.5-8.5); NEUTROPHILS % 81.4 % (36.0-66.0); PLATELET COUNT, AUTOMATED 276 10^3/uL (150-450); RED BLOOD COUNT 4.35 10^6/uL (4.00-5.40); WHITE BLOOD COUNT 11.4 10^3/uL (4.0-10.0)
[2022-12-24 12:45] LABS: CPK CREATINE PHOSPHOKINASE 57 U/L (34-145)
[2022-12-24 12:48] LABS: ALBUMIN 3.3 G/DL (3.2-5.2); ALKALINE PHOSPHATASE 100 U/L (46-116); ALT/SGPT 16 U/L (7.0-40); AST/SGOT 11 U/L (<34); BILIRUBIN,TOTAL 0.3 MG/DL (0.3-1.2); BLOOD UREA NITROGEN 58 MG/DL (9-23); CALCIUM LEVEL 9.3 MG/DL (8.3-10.6); CARBON DIOXIDE LEVEL 28 MMOL/L (20-31); CHLORIDE LEVEL 96 MMOL/L (98-107); CREATININE FOR GFR 0.88 MG/DL (0.55-1.30); GLOMERULAR FILTRATION RATE > 60.0 (>39); GLUCOSE, FASTING 287 MG/DL (74-106); POTASSIUM SERUM 4.5 MMOL/L (3.5-5.1); SODIUM LEVEL 135 MMOL/L (136-145); TOTAL PROTEIN 6.2 G/DL (5.7-8.2)
== END ==
PROVIDERS: ATTEND Nurse Practitioner Family
DX: N39.0 Urinary tract infection, site not specified (principal); R11.2 Nausea with vomiting, unspecified

== ENCOUNTER → 2022-12-28 | Outpatient (REF) | payer MEDICARE, MEDICAID ==
[2022-12-28 10:24] LABS: HEMOGLOBIN 11.8 g/dl (12.0-15.5); MEAN CORPUSCULAR HEMOGLOBIN 28.2 pg (27.0-33.0); MEAN CORPUSCULAR HGB CONC 31.9 g/dl (32.0-36.5); MEAN CORPUSCULAR VOLUME 88.5 fl (80.0-96.0); PLATELET COUNT, AUTOMATED 256 10^3/uL (150-450); RED BLOOD COUNT 4.18 10^6/uL (4.00-5.40)
[2022-12-28 11:06] LABS: BLOOD UREA NITROGEN 37 MG/DL (9-23); CALCIUM LEVEL 9.1 MG/DL (8.3-10.6); CARBON DIOXIDE LEVEL 26 MMOL/L (20-31); CHLORIDE LEVEL 100 MMOL/L (98-107); CREATININE FOR GFR 0.76 MG/DL (0.55-1.30); GLOMERULAR FILTRATION RATE > 60.0 (>39); GLUCOSE, FASTING 233 MG/DL (74-106); POTASSIUM SERUM 4.6 MMOL/L (3.5-5.1); SODIUM LEVEL 137 MMOL/L (136-145)
== END ==
PROVIDERS: ATTEND Nurse Practitioner Family
DX: I10 Essential (primary) hypertension (principal)

== ENCOUNTER → 2023-01-11 | Outpatient (REF) | payer MEDICARE, MEDICAID | PROVIDERS: ATTEND Nurse Practitioner Family | DX: N39.0 Urinary tract infection, site not specified (principal) ==

== ENCOUNTER → 2023-02-03 | Outpatient (REF) | payer MEDICARE, MEDICAID ==
[2023-02-03 09:46] LABS: HEMOGLOBIN A1c 9.2 % (4.0-6.0)
== END ==
PROVIDERS: ATTEND Internal Medicine
DX: N18.9 Chronic kidney disease, unspecified (principal); Z79.899 Other long term (current) drug therapy

== ENCOUNTER → 2023-02-04 | Outpatient (REF) | payer MEDICARE, MEDICAID | PROVIDERS: ATTEND Internal Medicine | DX: R33.9 Retention of urine, unspecified (principal); I87.8 Other specified disorders of veins; M47.9 Spondylosis, unspecified ==

== ENCOUNTER → 2023-04-15 | Outpatient (REF) | payer MEDICARE, MEDICAID | PROVIDERS: ATTEND Nurse Practitioner Family | DX: N39.0 Urinary tract infection, site not specified (principal) ==

== ENCOUNTER → 2023-04-22 | Outpatient (REF) | payer MEDICARE, MEDICAID | LOC: M LAB REF 14:02 | PROVIDERS: ATTEND Ophthalmology | DX: H02.822 Cysts of right lower eyelid (principal) ==

== ENCOUNTER → 2023-05-03 | Outpatient (REF) | payer MEDICARE, MEDICAID ==
[2023-05-03 08:53] LABS: HEMATOCRIT 35.3 % (36.0-47.0); HEMOGLOBIN 11.1 g/dl (12.0-15.5); MEAN CORPUSCULAR HEMOGLOBIN 26.9 pg (27.0-33.0); MEAN CORPUSCULAR HGB CONC 31.4 g/dl (32.0-36.5); MEAN CORPUSCULAR VOLUME 85.5 fl (80.0-96.0); PLATELET COUNT, AUTOMATED 276 10^3/uL (150-450); RED BLOOD COUNT 4.13 10^6/uL (4.00-5.40); WHITE BLOOD COUNT 9.7 10^3/uL (4.0-10.0)
[2023-05-03 09:23] LABS: ALBUMIN 3.2 G/DL (3.2-5.2); ALKALINE PHOSPHATASE 64 U/L (46-116); ALT/SGPT < 9 U/L (7.0-40); AST/SGOT 11 U/L (<34); BILIRUBIN,DIRECT < 0.1 MG/DL (<0.4); BILIRUBIN,TOTAL 0.4 MG/DL (0.3-1.2); BLOOD UREA NITROGEN 22 MG/DL (9-23); CALCIUM LEVEL 8.7 MG/DL (8.3-10.6); CARBON DIOXIDE LEVEL 27 MMOL/L (20-31); CHLORIDE LEVEL 105 MMOL/L (98-107); CHOLESTEROL LEVEL 135 MG/DL (<200); CHOLESTEROL RISK RATIO 4.15 (<5); CREATININE FOR GFR 0.85 MG/DL (0.55-1.30); GLOMERULAR FILTRATION RATE > 60.0 (>39); GLUCOSE, FASTING 107 MG/DL (74-106); HDL CHOLESTEROL 32.5 MG/DL (>40); LDL CHOLESTEROL 50.7 MG/DL (<100); NON-HDL-C 102.5 MG/DL; POTASSIUM SERUM 4.4 MMOL/L (3.5-5.1); PTH INTACT 29.4 PG/ML (18.5-88.0); SODIUM LEVEL 138 MMOL/L (136-145); TOTAL PROTEIN 6.1 G/DL (5.7-8.2); TRIGLYCERIDES LEVEL 259 MG/DL (<150)
[2023-05-03 09:24] LABS: THYROID STIMULATING HORMONE 2.342 uIU/ML (0.55-4.78); TOTAL 25(OH) VITAMIN D 45.1 NG/ML (20.0-100.0)
[2023-05-03 09:57] LABS: HEMOGLOBIN A1c 7.3 % (4.0-6.0)
== END ==
PROVIDERS: ATTEND Internal Medicine
DX: N18.9 Chronic kidney disease, unspecified (principal); Z79.899 Other long term (current) drug therapy

== ENCOUNTER → 2023-08-02 | Outpatient (REF) | payer MEDICARE, MEDICAID ==
[~2023-08-02] MED LIST changes: -GABA-283 PO; +GABA-284 PO
[2023-08-02 11:26] LABS: HEMOGLOBIN A1c 7.2 % (4.0-6.0)
== END ==
PROVIDERS: ATTEND Internal Medicine
DX: N18.9 Chronic kidney disease, unspecified (principal); Z79.899 Other long term (current) drug therapy

== ENCOUNTER → 2023-10-04 | Outpatient (REF) | payer MEDICARE, MEDICAID | PROVIDERS: ATTEND Nurse Practitioner Family | DX: R05.9 Cough, unspecified (principal) ==

== ENCOUNTER → 2023-11-05 | Outpatient (REF) | payer MEDICARE, MEDICAID ==
[2023-11-05 10:27] LABS: HEMATOCRIT 38.4 % (36.0-47.0); HEMOGLOBIN 12.2 g/dl (12.0-15.5); MEAN CORPUSCULAR HEMOGLOBIN 27.6 pg (27.0-33.0); MEAN CORPUSCULAR HGB CONC 31.8 g/dl (32.0-36.5); MEAN CORPUSCULAR VOLUME 86.9 fl (80.0-96.0); PLATELET COUNT, AUTOMATED 283 10^3/uL (150-450); RED BLOOD COUNT 4.42 10^6/uL (4.00-5.40); WHITE BLOOD COUNT 7.8 10^3/uL (4.0-10.0)
[2023-11-05 10:43] LABS: ALBUMIN 3.3 G/DL (3.2-5.2); ALKALINE PHOSPHATASE 71 U/L (46-116); ALT/SGPT 18 U/L (7.0-40); AST/SGOT 14 U/L (<34); BILIRUBIN,DIRECT 0.1 MG/DL (<0.4); BILIRUBIN,TOTAL 0.4 MG/DL (0.3-1.2); BLOOD UREA NITROGEN 30 MG/DL (9-23); CALCIUM LEVEL 9.2 MG/DL (8.3-10.6); CARBON DIOXIDE LEVEL 26 MMOL/L (20-31); CHLORIDE LEVEL 105 MMOL/L (98-107); CHOLESTEROL LEVEL 152 MG/DL (<200); CHOLESTEROL RISK RATIO 4.28 (<5); GLOMERULAR FILTRATION RATE > 60.0 (>32); GLUCOSE, FASTING 133 MG/DL (74-106); HDL CHOLESTEROL 35.5 MG/DL (>40); LDL CHOLESTEROL 58.7 MG/DL (<100); NON-HDL-C 116.5 MG/DL; PHOSPHORUS LEVEL 4.1 MG/DL (2.4-5.1); POTASSIUM SERUM 4.4 MMOL/L (3.5-5.1); PTH INTACT 28.3 PG/ML (18.5-88.0); SODIUM LEVEL 136 MMOL/L (136-145); TRIGLYCERIDES LEVEL 289 MG/DL (<150)
[2023-11-05 10:46] LABS: THYROID STIMULATING HORMONE 2.991 uIU/ML (0.55-4.78)
[2023-11-05 10:47] LABS: TOTAL 25(OH) VITAMIN D 48.1 NG/ML (20.0-100.0)
[2023-11-05 10:55] LABS: HEMOGLOBIN A1c 7.7 % (4.0-6.0)
== END ==
PROVIDERS: ATTEND Internal Medicine
DX: E78.5 Hyperlipidemia, unspecified (principal); Z79.899 Other long term (current) drug therapy

== ENCOUNTER → 2023-11-25 | Outpatient (REF) | payer MEDICARE, MEDICAID | PROVIDERS: ATTEND Internal Medicine | DX: R33.9 Retention of urine, unspecified (principal); N20.0 Calculus of kidney ==

== ENCOUNTER → 2023-12-14 | Outpatient (CLI) | payer MEDICARE, MEDICAID | LOC: M WHC 10:13 | PROVIDERS: ATTEND Nurse Practitioner Family | DX: Z12.31 Encounter for screening mammogram for malignant neoplasm of breast (principal) ==

== ENCOUNTER → 2024-01-31 | Outpatient (REF) | payer MEDICARE, MEDICAID ==
[2024-01-31 09:50] LABS: HEMOGLOBIN A1c 6.8 % (4.0-6.0)
== END ==
PROVIDERS: ATTEND Internal Medicine
DX: E11.9 Type 2 diabetes mellitus without complications (principal)

== ENCOUNTER → 2024-05-01 | Outpatient (REF) | payer MEDICARE, MEDICAID ==
[2024-05-01 11:21] LABS: HEMATOCRIT 37.9 % (36.0-47.0); HEMOGLOBIN 12.1 g/dl (12.0-15.5); MEAN CORPUSCULAR HEMOGLOBIN 28.5 pg (27.0-33.0); MEAN CORPUSCULAR HGB CONC 31.9 g/dl (32.0-36.5); MEAN CORPUSCULAR VOLUME 89.2 fl (80.0-96.0); PLATELET COUNT, AUTOMATED 265 10^3/uL (150-450); RED BLOOD COUNT 4.25 10^6/uL (4.00-5.40); WHITE BLOOD COUNT 7.1 10^3/uL (4.0-10.0)
[2024-05-01 11:41] LABS: ALBUMIN 3.3 G/DL (3.2-5.2); ALKALINE PHOSPHATASE 68 U/L (46-116); ALT/SGPT 26 U/L (7.0-40); AST/SGOT 16 U/L (<34); BILIRUBIN,DIRECT < 0.1 MG/DL (<0.4); BILIRUBIN,TOTAL 0.4 MG/DL (0.3-1.2); BLOOD UREA NITROGEN 27 MG/DL (9-23); CALCIUM LEVEL 8.8 MG/DL (8.3-10.6); CARBON DIOXIDE LEVEL 26 MMOL/L (20-31); CHLORIDE LEVEL 106 MMOL/L (98-107); CHOLESTEROL LEVEL 179 MG/DL (<200); CHOLESTEROL RISK RATIO 4.82 (<5); CREATININE FOR GFR 0.91 MG/DL (0.55-1.30); GLOMERULAR FILTRATION RATE > 60.0 (>32); GLUCOSE, FASTING 155 MG/DL (74-106); HDL CHOLESTEROL 37.1 MG/DL (>40); LDL CHOLESTEROL 84.9 MG/DL (<100); NON-HDL-C 141.9 MG/DL; POTASSIUM SERUM 4.4 MMOL/L (3.5-5.1); SODIUM LEVEL 140 MMOL/L (136-145); THYROID STIMULATING HORMONE 2.329 uIU/ML (0.55-4.78); TRIGLYCERIDES LEVEL 285 MG/DL (<150)
[2024-05-01 12:46] LABS: HEMOGLOBIN A1c 7.1 % (4.0-6.0)
== END ==
PROVIDERS: ATTEND Nurse Practitioner Adult Health
DX: E11.9 Type 2 diabetes mellitus without complications (principal); E78.5 Hyperlipidemia, unspecified

== ENCOUNTER → 2024-06-05 | Outpatient (REF) | payer MEDICARE, MEDICAID ==
[2024-06-05 11:41] LABS: HEMOGLOBIN A1c 7.7 % (4.0-6.0)
== END ==
PROVIDERS: ATTEND Physician Assistant
DX: E11.9 Type 2 diabetes mellitus without complications (principal)

== ENCOUNTER → 2024-07-12 | Outpatient (REF) | payer MEDICARE, MEDICAID ==
[~2024-07-12] MED LIST changes: +GABA-1490 PO; -GABA600T4 PO
== END ==
PROVIDERS: ATTEND Nurse Practitioner Adult Health
DX: E78.5 Hyperlipidemia, unspecified (principal); Z53.8 Procedure and treatment not carried out for other reasons

== ENCOUNTER → 2024-07-14 | Outpatient (REF) | payer MEDICARE, MEDICAID ==
[2024-07-14 08:53] LABS: HDL CHOLESTEROL 35.6 MG/DL (>40); LDL CHOLESTEROL 84.8 MG/DL (<100); NON-HDL-C 142.4 MG/DL
== END ==
PROVIDERS: ATTEND Internal Medicine
DX: E78.5 Hyperlipidemia, unspecified (principal)

== ENCOUNTER → 2024-10-04 | Outpatient (REF) | payer MEDICARE, MEDICAID ==
[~2024-10-04] MED LIST changes: +GABA-1172 PO; -GABA-282 PO; -LIDO1CRE2 EXT; +LIDO4CRE12 EXT
== END ==
PROVIDERS: ATTEND Nurse Practitioner Adult Health
DX: E11.9 Type 2 diabetes mellitus without complications (principal); Z53.9 Procedure and treatment not carried out, unspecified reason

== ENCOUNTER → 2024-10-09 | Outpatient (REF) | payer MEDICARE, MEDICAID ==
[2024-10-09 11:17] LABS: HEMOGLOBIN A1c 7.4 % (4.0-6.0)
== END ==
PROVIDERS: ATTEND Internal Medicine
DX: E11.9 Type 2 diabetes mellitus without complications (principal)

== ENCOUNTER → 2024-11-08 | Outpatient (REF) | payer MEDICARE, MEDICAID ==
[2024-11-08 13:36] LABS: HEMATOCRIT 39.2 % (36.0-47.0); HEMOGLOBIN 12.4 g/dl (12.0-15.5); MEAN CORPUSCULAR HEMOGLOBIN 27.8 pg (27.0-33.0); MEAN CORPUSCULAR HGB CONC 31.6 g/dl (32.0-36.5); MEAN CORPUSCULAR VOLUME 87.9 fl (80.0-96.0); PLATELET COUNT, AUTOMATED 297 10^3/uL (150-450); RED BLOOD COUNT 4.46 10^6/uL (4.00-5.40)
[2024-11-08 14:05] LABS: TOTAL 25(OH) VITAMIN D 40.5 NG/ML (20.0-100.0)
[2024-11-08 15:20] LABS: ALBUMIN 3.4 G/DL (3.2-5.2); ALKALINE PHOSPHATASE 64 U/L (35-104); ALT/SGPT 20 U/L (7.0-40); AST/SGOT 17 U/L (<34); BILIRUBIN,DIRECT < 0.1 MG/DL (<0.4); BILIRUBIN,TOTAL 0.3 MG/DL (0.3-1.2); BLOOD UREA NITROGEN 32 MG/DL (9-23); CALCIUM LEVEL 9.1 MG/DL (8.3-10.6); CARBON DIOXIDE LEVEL 27 MMOL/L (20-31); CHLORIDE LEVEL 105 MMOL/L (98-107); CHOLESTEROL LEVEL 165 MG/DL (<200); CHOLESTEROL RISK RATIO 4.31 (<5); CREATININE FOR GFR 1.06 MG/DL (0.55-1.30); GLUCOSE, FASTING 154 MG/DL (74-106); HDL CHOLESTEROL 38.2 MG/DL (>40); NON-HDL-C 126.8 MG/DL; PHOSPHORUS LEVEL 4.1 MG/DL (2.4-5.1); POTASSIUM SERUM 4.6 MMOL/L (3.5-5.1); SODIUM LEVEL 140 MMOL/L (136-145); TOTAL PROTEIN 6.2 G/DL (5.7-8.2); TRIGLYCERIDES LEVEL 279 MG/DL (<150)
[2024-11-08 15:21] LABS: PTH INTACT 36.6 PG/ML (18.5-88.0)
== END ==
PROVIDERS: ATTEND Internal Medicine
DX: E78.5 Hyperlipidemia, unspecified (principal); N18.9 Chronic kidney disease, unspecified; Z79.899 Other long term (current) drug therapy

== ENCOUNTER → 2024-12-20 | Outpatient (CLI) | payer MEDICARE, MEDICAID | LOC: M WHC 10:12 | PROVIDERS: ATTEND Internal Medicine | DX: Z12.31 Encounter for screening mammogram for malignant neoplasm of breast (principal) ==

== ENCOUNTER → 2024-12-21 | Outpatient (CLI) | payer MEDICARE, MEDICAID | LOC: M RAD 10:05 | PROVIDERS: ATTEND Physician Assistant | DX: R33.9 Retention of urine, unspecified (principal) ==

== ENCOUNTER → 2025-01-10 | Outpatient (CLI) | payer MEDICARE, MEDICAID | LOC: M WHC 10:47 | PROVIDERS: ATTEND Internal Medicine | DX: Z12.31 Encounter for screening mammogram for malignant neoplasm of breast (principal); N64.9 Disorder of breast, unspecified | CPT/HCPCS: 77065; G0279 ==

== ENCOUNTER → 2025-02-05 | Outpatient (REF) | payer MEDICARE, MEDICAID ==
[2025-02-05 09:31] LABS: HEMOGLOBIN A1c 7.5 % (4.0-6.0)
== END ==
PROVIDERS: ATTEND Nurse Practitioner Family
DX: E11.9 Type 2 diabetes mellitus without complications (principal)

== ENCOUNTER → 2025-05-07 | Outpatient (REF) | payer MEDICARE, MEDICAID ==
[~2025-05-07] MED LIST changes: +CVS10CAP8 PO; -FLOM0.4C39 PO; +MAG30ORA18 PO; -MELA10CA2 PO; -MYLASSUD PO; +TAMS-18 PO
[2025-05-07 08:56] LABS: PLATELET COUNT, AUTOMATED 293 10^3/uL (150-450)
[2025-05-07 09:23] LABS: ALT/SGPT 17 U/L (7.0-40); AST/SGOT 16 U/L (<34); CALCIUM LEVEL 9.1 MG/DL (8.3-10.6); CARBON DIOXIDE LEVEL 25 MMOL/L (20-31); CHLORIDE LEVEL 103 MMOL/L (98-107); CHOLESTEROL LEVEL 162 MG/DL (<200); CHOLESTEROL RISK RATIO 4.52 (<5); CREATININE FOR GFR 0.97 MG/DL (0.55-1.30); GLOMERULAR FILTRATION RATE 58.7 (>32); LDL CHOLESTEROL 64.4 MG/DL (<100); NON-HDL-C 126.2 MG/DL; POTASSIUM SERUM 4.9 MMOL/L (3.5-5.1); SODIUM LEVEL 139 MMOL/L (136-145); TRIGLYCERIDES LEVEL 309 MG/DL (<150)
== END ==
PROVIDERS: ATTEND Nurse Practitioner Family
DX: E78.5 Hyperlipidemia, unspecified (principal)

== ENCOUNTER → 2025-06-06 | Outpatient (REF) | payer MEDICARE, MEDICAID ==
[2025-06-06 12:50] LABS: ESTIMATED AVERAGE GLUCOSE 166.0 MG/DL (60-110)
== END ==
PROVIDERS: ATTEND Internal Medicine
DX: E11.9 Type 2 diabetes mellitus without complications (principal)

== ENCOUNTER → 2025-06-26 | Outpatient (REF) | payer MEDICARE, MEDICAID | PROVIDERS: ATTEND Internal Medicine | DX: R05.9 Cough, unspecified (principal) ==

== ENCOUNTER → 2025-09-19 | Outpatient (REF) | payer MEDICARE, MEDICAID ==
[2025-09-19 09:16] LABS: PLATELET COUNT, AUTOMATED 298 10^3/uL (150-450)
== END ==
PROVIDERS: ATTEND Nurse Practitioner Family
DX: D64.9 Anemia, unspecified (principal)

== ENCOUNTER → 2025-10-01 | Outpatient (REF) | payer MEDICARE, MEDICAID ==
[2025-10-01 11:20] LABS: ESTIMATED AVERAGE GLUCOSE 163.0 MG/DL (60-110)
== END ==
PROVIDERS: ATTEND Nurse Practitioner Family
DX: E11.9 Type 2 diabetes mellitus without complications (principal)